=== PATIENT | male | born 1995 | race Hispanic/Latino ===

== ENCOUNTER 2018-07-09 12:35 | Emergency (ER) | payer BC, SELFPAY ==
--- NOTE | 2018-07-09 13:52 | EDPHYS ---
Physician Documentation [facility] Name: Gucci Santoyo Age: 22 yrs Sex: Male : 1995 Arrival Date: 07/09/2018 Time: 12:39 Bed 23 Private MD: ED Physician Dario Mcdaniel HPI: 07/09 13:51 This 22 yrs old Male presents to ER via Ambulatory with complaints of Nose pm1 Bleed, Vomiting. 13:51 The patient presents with a nose bleed, and the bleeding resolved prior to arrival. pm1 Onset: The symptoms/episode began/occurred on and off for 1 week. . Modifying factors: The symptoms are alleviated by pressure, the symptoms are aggravated by nothing. Associated signs and symptoms: The patient has no apparent associated signs or symptoms, Loss of consciousness: the patient experienced no loss of consciousness, Pertinent negatives: blurred vision, chest pain, cough, ear ache, fever, lightheadedness, nausea, rhinorrhea, shortness of breath, sore throat, vertigo. Severity of symptoms: in the emergency department the symptoms have resolved. The patient has experienced similar episodes in the past, multiple times. The patient has not recently seen a physician. Patient presenting with on and off nose bleed for 1 week that has resolved prior to arrival. Patient with occasional vomiting for the past three years. Patient reports history of h. pylori that was diagnosed three years ago that he did not complete the triple therapy. Patient had polyps removed with colonoscopy at three years ago that he did not follow up on. Patient is looking for treatment for his h. pylori and a colonoscopy. Patient is also complaining of a headache that started yesterday and resolved yesterday after going to sleep. No current headache. Historical: - Allergies: 12:56 No Known Allergies; ss - Home Meds: 12:56 None [Active]; ss - PMHx: 12:56 None; ss - PSHx: 12:56 None; ss - Immunization history:: Adult Immunizations up to date. - Social history:: Smoking status: Patient/guardian denies using tobacco. - Ebola Screening: : Patient denies exposure to infectious person Patient denies travel to an Ebola-affected area in the 21 days before illness onset. ROS: 13:51 Constitutional: Negative for fever, chills, and weight loss, Eyes: Negative for injury, pm1 pain, redness, and discharge, Neck: Negative for injury, pain, and swelling, Cardiovascular: Negative for chest pain, palpitations, and edema, Respiratory: Negative for shortness of breath, cough, wheezing, and pleuritic chest pain, Back: Negative for injury and pain, : Negative for injury, bleeding, discharge, and swelling, MS/Extremity: Negative for injury and deformity, Skin: Negative for injury, rash, and discoloration, Neuro: Negative for headache, weakness, numbness, tingling, and seizure. 13:51 ENT: Positive for nose bleed, Negative for drainage from ear(s), ear pain, sore throat, dental pain, difficulty swallowing, difficulty handling secretions. 13:51 Abdomen/GI: Positive for nausea, vomiting, Negative for abdominal pain, diarrhea. Exam: 13:51 Constitutional: This is a well developed, well nourished patient who is awake, alert, pm1 and in no acute distress. Head/Face: Normocephalic, atraumatic. Eyes: Pupils equal round and reactive to light, extra-ocular motions intact. Lids and lashes normal. Conjunctiva and sclera are non-icteric and not injected. Cornea within normal limits. Periorbital areas with no swelling, redness, or edema. ENT: Nares patent. No nasal discharge, no septal abnormalities noted. Tympanic membranes are normal and external auditory canals are clear. Oropharynx with no redness, swelling, or masses, exudates, or evidence of obstruction, uvula midline. Mucous membranes moist. Neck: Trachea midline, no thyromegaly or masses palpated, and no cervical lymphadenopathy. Supple, full range of motion without nuchal rigidity, or vertebral point tenderness. No Meningismus. Chest/axilla: Normal chest wall appearance and motion. Nontender with no deformity. No lesions are appreciated. Cardiovascular: Regular rate and rhythm with a normal S1 and S2. No gallops, murmurs, or rubs. Normal PMI, no JVD. No pulse deficits. Respiratory: Lungs have equal breath sounds bilaterally, clear to auscultation and percussion. No rales, rhonchi or wheezes noted. No increased work of breathing, no retractions or nasal flaring. Abdomen/GI: Soft, non-tender, with normal bowel sounds. No distension or tympany. No guarding or rebound. No evidence of tenderness throughout. Back: No spinal tenderness. No costovertebral tenderness. Full range of motion. Skin: Warm, dry with normal turgor. Normal color with no rashes, no lesions, and no evidence of cellulitis. MS/ Extremity: Pulses equal, no cyanosis. Neurovascular intact. Full, normal range of motion. 13:51 Neuro: Orientation: is normal, Motor: is normal, moves all fours, Sensation: is normal, no obvious gross deficits, Gait: is steady, at a normal pace, without difficulty. Vital Signs: 12:56 BP 146 / 96; Pulse 84; Resp 16; Temp 98.6(TE); Pulse Ox 99% on R/A; Weight 81.65 kg; ss Height 5 ft. 6 in. (167.64 cm); Pain 0/10; 13:00 BP 137 / 94; Pulse 89; Resp 19; Pulse Ox 100% on R/A; ca1 13:22 BP 122 / 80; Pulse 102; Resp 19; Pulse Ox 100% on R/A; ca1 14:00 BP 136 / 97; Pulse 81; Resp 19; Pulse Ox 100% on R/A; ca1 12:56 Body Mass Index 29.05 (81.65 kg, 167.64 cm) ss MDM: 12:59 Patient medically screened. pm1 13:51 Data reviewed: vital signs. Data interpreted: Pulse oximetry: on room air is 100 %. pm1 Interpretation: normal. Counseling: I had a detailed discussion with the patient and/or guardian regarding: the historical points, exam findings, and any diagnostic results supporting the discharge/admit diagnosis, the need for outpatient follow up, to return to the emergency department if symptoms worsen or persist or if there are any questions or concerns that arise at home. Administered Medications: No medications were administered Disposition: 07/10 07:19 Co-signature as Attending Physician, Dario Mcdaniel MD I agree with the assessment and kdr plan of care. Disposition: 07/09/18 13:52 Discharged to Home. Impression: Epistaxis - resolved, Vomiting, Headache. - Condition is Stable. - Discharge Instructions: Nosebleed, Adult, General Headache Without Cause, [id number], Vomiting, Adult. - Prescriptions for Zofran 4 mg Oral Tablet - take 1 tablet by ORAL route every 12 hours As needed; 20 tablet. Fiorinal 50- 325-40 mg Oral Capsule - take 1 capsule by ORAL route every 4 hours As needed - not to exceed 6 capsules per day; 20 capsule. - Medication Reconciliation Form, Thank You Letter, Antibiotic Education, Prescription Opioid Use, Work release form form. - Follow up: Emergency Department; When: As needed; Reason: Worsening of condition. Follow up: Private Physician; When: 2 - 3 days; Reason: Recheck today's complaints, Continuance of care, Re-evaluation by your physician. - Problem is new. - Symptoms have improved. Signatures: Dario Mcdaniel MD MD kdr Autumn Kowalski RN RN ss Montez Saravia, LORRAINE BILLING CLERK pm1 Acob, Jessica RN RN ca1 Corrections: (The following items were deleted from the chart) 07/09 13:53 13:52 07/09/2018 13:52 Discharged to Home. Impression: Epistaxis - resolved; Vomiting. pm1 Condition is Stable. Forms are Medication Reconciliation Form, Thank You Letter, Antibiotic Education, Prescription Opioid Use. Follow up: Emergency Department; When: As needed; Reason: Worsening of condition. Follow up: Private Physician; When: 2 - 3 days; Reason: Recheck today's complaints, Continuance of care, Re-evaluation by your physician. Problem is new. Symptoms have improved. pm1 14:18 13:53 07/09/2018 13:52 Discharged to Home. Impression: Epistaxis - resolved; Vomiting; ca1 Headache. Condition is Stable. Discharge Instructions: Nosebleed, Adult, Vomiting, Adult, General Headache Without Cause, [id number]. Prescriptions for Zofran 4 mg Oral Tablet - take 1 tablet by ORAL route every 12 hours As needed; 20 tablet, Fiorinal 50-325-40 mg Oral Capsule - take 1 capsule by ORAL route every 4 hours As needed - not to exceed 6 capsules per day; 20 capsule. and Forms are Medication Reconciliation Form, Thank You Letter, Antibiotic Education, Prescription Opioid Use. Follow up: Emergency Department; When: As needed; Reason: Worsening of condition. Follow up: Private Physician; When: 2 - 3 days; Reason: Recheck today's complaints, Continuance of care, Re-evaluation by your physician. Problem is new. Symptoms have improved. pm1
--- NOTE | 2018-07-09 13:52 | ER ---
Nurse's Notes [facility] Name: Gucci Santoyo Age: 22 yrs Sex: Male : 1995 Arrival Date: 07/09/2018 Time: 12:39 Bed 23 Private MD: Diagnosis: Epistaxis-resolved;Vomiting;Headache Presentation: 07/09 12:54 Presenting complaint: Patient states: intermittent nose bleeds, headaches and vomiting ss x 1 week. Pt reports this has occurred in the past and has had a lot of testing, but has never been diagnosed with anything. Transition of care: patient was not received from another setting of care. Onset of symptoms was July 02, 2018. Risk Assessment: Do you want to hurt yourself or someone else? Patient reports no desire to harm self or others. Initial Sepsis Screen: Does the patient meet any 2 criteria? No. Patient's initial sepsis screen is negative. Does the patient have a suspected source of infection? No. Patient's initial sepsis screen is negative. Care prior to arrival: None. 12:54 Method Of Arrival: Ambulatory ss 12:54 Acuity: JACQUI 3 ss Historical: - Allergies: 12:56 No Known Allergies; ss - Home Meds: 12:56 None [Active]; ss - PMHx: 12:56 None; ss - PSHx: 12:56 None; ss - Immunization history:: Adult Immunizations up to date. - Social history:: Smoking status: Patient/guardian denies using tobacco. - Ebola Screening: : Patient denies exposure to infectious person Patient denies travel to an Ebola-affected area in the 21 days before illness onset. Screenin:00 Abuse screen: Denies threats or abuse. Denies injuries from another. Nutritional ca1 screening: No deficits noted. On. Tuberculosis screening: No symptoms or risk factors identified. Fall Risk None identified. Assessment: 12:59 General: Appears in no apparent distress. comfortable, Behavior is calm, cooperative, ca1 appropriate for age, pt reports of vomiting this morning. 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 There was a lot of blood that soaked a few Kleenex which only comes from the right nostril. Pt also complained of dizziness and nausea during that time, but not at this time. . Pain: Complains of pain in low back area Pain does not radiate. Pain currently is 7 out of 10 on a pain scale. Pain began gradually, about over a week ago Is continuous, Aggravated by increased activity, lying down. Neuro: Level of Consciousness is awake, alert, obeys commands, Oriented to person, place, time, situation. Cardiovascular: Heart tones S1 S2 present Capillary refill < 3 seconds Patient's skin is warm and dry. Respiratory: Airway is patent Trachea midline Respiratory effort is even, unlabored, Respiratory pattern is regular, symmetrical, Breath sounds are clear bilaterally. GI: Abdomen is flat, non-distended, Bowel sounds present X 4 quads. Abd is soft and non tender X 4 quads. Reports nausea, vomiting, this morning and during the episode of nosebleed. : No deficits noted. No signs and/or symptoms were reported regarding the genitourinary system. EENT: Ear canal clear on nose Reports nasal discharge that is bloody since a week ago. Derm: Skin is intact, is healthy with good turgor, Skin is pink, warm \T\ dry. Musculoskeletal: Circulation, motion, and sensation intact. Capillary refill < 3 seconds, Range of motion: intact in all extremities. 13:20 Reassessment: Montez Saravia, MOTORCYCLE ENGINE ASSEMBLER at bedside. ca1 14:00 Reassessment: Patient appears in no apparent distress at this time. Patient and/or ca1 family updated on plan of care and expected duration. Pain level reassessed. Patient is alert, oriented x 3, equal unlabored respirations, skin warm/dry/pink. 14:00 Reassessment:. ca1 Vital Signs: 12:56 BP 146 / 96; Pulse 84; Resp 16; Temp 98.6(TE); Pulse Ox 99% on R/A; Weight 81.65 kg; Height 5 ft. 6 in. (167.64 cm); Pain 0/10; 13:00 BP 137 / 94; Pulse 89; Resp 19; Pulse Ox 100% on R/A; ca1 13:22 BP 122 / 80; Pulse 102; Resp 19; Pulse Ox 100% on R/A; ca1 14:00 BP 136 / 97; Pulse 81; Resp 19; Pulse Ox 100% on R/A; ca1 12:56 Body Mass Index 29.05 (81.65 kg, 167.64 cm) ED Course: 12:39 Patient arrived in ED. mr 12:48 Montez Saravia NP is PHCP. pm1 12:48 Dario Mcdaniel MD is Attending Physician. pm1 12:51 Jessica Gannon, RN is Primary Nurse. ca1 12:56 Triage completed. ss 12:56 Arm band placed on right wrist. ss 13:00 Patient has correct armband on for positive identification. Placed in gown. Bed in low ca1 position. Side rails up X 1. Pulse ox on. NIBP on. Warm blanket given. 13:00 No provider procedures requiring assistance completed. ca1 14:00 Patient did not have IV access during this emergency room visit. ca1 Administered Medications: No medications were administered Outcome: 13:52 Discharge ordered by . pm1 14:05 Discharged to home ambulatory. ca1 14:05 Condition: stable 14:05 Discharge instructions given to patient, Instructed on discharge instructions, follow up and referral plans. medication usage, Demonstrated understanding of instructions, follow-up care, medications, Prescriptions given X 2. 14:18 Patient left the ED. ca1 Signatures: Shelia Grullon Shelby, RN RN Montez Saravia NP MOTORCYCLE ENGINE ASSEMBLER pm1 Jessica Gannon, SUKI RN ca1 Corrections: (The following items were deleted from the chart) 13:07 12:59 BP 137 / 94; Pulse 89bpm; Resp 19bpm; Pulse Ox 100% RA; ca1 ca1
== END 2018-07-09 14:18 | disposition home or self-care (01) ==
LOC: ER 12:35
DX: R04.0 Epistaxis (principal); R11.10 Vomiting, unspecified; R51 Headache
CPT/HCPCS: 99283

== ENCOUNTER 2019-04-29 14:41 | Emergency (ER) | payer SELFPAY ==
[2019-04-29 16:25] LABS: Absolute Lymphocytes (CBC) 2.1 K/uL (0.7-4.9); Basophils % 0.7 % (0-1.3); Hematocrit 45.9 % (39.6-49.0); Lymphocytes % 24.8 % (15.3-44.8); MPV 8.1 fL (7.6-11.3); RBC Red Blood Cell Count 4.87 M/uL (4.33-5.43)
[2019-04-29] MEDS ORDERED: METOCLOPRAMIDE 10 MG/2mL INJ ONE (16:41)
[2019-04-29] MEDS ORDERED: DIPHENHYDRAMINE 50 MG/ML VIAL ONE (16:42)
[2019-04-29] MEDS ORDERED: NA CHLORIDE 0.9% 1,000 ML ONE ×2 (16:42→18:27)
[2019-04-29 16:49] LABS: Albumin 4.7 g/dL (3.4-5.0); Bilirubin Direct 0.1 mg/dL (0-0.2); Bilirubin Total 0.4 mg/dL (0.2-1.0); Potassium 4.1 mmol/L (3.5-5.1); Protein, Total 8.2 g/dL (6.4-8.2)
--- NOTE | 2019-04-29 17:11 | RAD REPORT ---
EXAM DESCRIPTION: CTAbdomen Pelvis W Contrast - 04/29/2019 5:05 pm CLINICAL HISTORY: Abdominal pain. abdominal pain, vomiting COMPARISON: <Comparisons> TECHNIQUE: Biphasic CT imaging of the abdomen and pelvis was performed with 100 ml non-ionic IV cont rast. All CT scans are performed using dose optimization technique as appropriate and may include automated exposure control or mA/KV adjustment according to patient size. FINDINGS: The lung bases are clear. The liver, spleen, pancreas, adrenal glands and kidneys are within normal limits. No bowel obstruction, free air, free fluid or abscess. The appendix is normal. No evidence of signi ficant lymphadenopathy. No suspicious bony findings. IMPRESSION: No acute intra-abdominal or pelvic finding.
--- NOTE | 2019-04-29 17:42 | EDPHYS ---
Physician Documentation [facility] Name: Gucci Santoyo Age: 23 yrs Sex: Male : 1995 Arrival Date: 04/29/2019 Time: 14:44 Bed 11 Private MD: ED Physician Henrry Perera HPI: 04/29 16:04 This 23 yrs old Male presents to ER via Carried with complaints of Nose Bleed, jmm Headache, Vomiting. 16:04 The patient presents with abdominal pain. Onset: The symptoms/episode began/occurred jmm gradually, 1 month(s) ago. The symptoms do not radiate. Associated signs and symptoms: Pertinent positives: headache, vomiting. The symptoms are described as achy. This is a 23 year old female with no known chronic medical conditions that presents to the ED with complaints of abdominal pain, vomiting beginning approx 1 month ago. Patient states similar episodes in the past. Patient also complains of intermittent headaches similar to previous migraines over the past month. Denies fever. Denies dark stools, bloody stools, or diarrhea. . Historical: - Allergies: 14:59 No Known Allergies; sg - PMHx: 14:59 None; sg - PSHx: 14:59 None; sg - Immunization history:: Adult Immunizations not up to date. - Social history:: Smoking status: Patient/guardian denies using tobacco. - Ebola Screening: : Patient negative for fever greater than or equal to 101.5 degrees Fahrenheit, and additional compatible Ebola Virus Disease symptoms Patient denies exposure to infectious person Patient denies travel to an Ebola-affected area in the 21 days before illness onset No symptoms or risks identified at this time. ROS: 16:04 Constitutional: Negative for fever, chills, and weight loss, Cardiovascular: Negative jmm for chest pain, palpitations, and edema, Respiratory: Negative for shortness of breath, cough, wheezing, and pleuritic chest pain. 16:04 ENT: Positive for nose bleed. 16:04 Abdomen/GI: Positive for abdominal pain, nausea and vomiting. 16:04 Neuro: Positive for headache. 16:04 All other systems are negative. Exam: 16:04 Constitutional: This is a well developed, well nourished patient who is awake, alert, jmm and in no acute distress. Head/Face: atraumatic. Eyes: EOMI, no conjunctival erythema appreciated ENT: Moist Mucus Membranes Neck: Trachea midline, Supple Chest/axilla: Normal chest wall appearance and motion. Cardiovascular: Regular rate and rhythm. No edema appreciated Respiratory: Normal respirations, no respiratory distress appreciated 16:04 Abdomen/GI: Inspection: abdomen appears normal, Bowel sounds: normal, Palpation: abdomen is soft and non-tender, in all quadrants. 16:04 Musculoskeletal/extremity: ROM: intact in all extremities. 16:04 Skin: Appearance: Color: normal in color. 16:04 Neuro: Orientation: is normal, Mentation: is normal, Memory: is normal. 16:04 Psych: Behavior/mood is pleasant, cooperative. Vital Signs: 15:16 BP 142 / 80; Pulse 77; Resp 18; Temp 99.0; Pulse Ox 97% on R/A; Weight 83.91 kg (R); sg Height 5 ft. 6 in. (167.64 cm); 15:16 Body Mass Index 29.86 (83.91 kg, 167.64 cm) sg MDM: 15:36 Patient medically screened. [facility] 17:39 Data reviewed: vital signs, nurses notes. Counseling: I had a detailed discussion with ra the patient and/or guardian regarding: the historical points, exam findings, and any diagnostic results supporting the discharge/admit diagnosis, lab results, radiology results, the need for outpatient follow up, to return to the emergency department if symptoms worsen or persist or if there are any questions or concerns that arise at home. ED course: Patient is alert and non toxic in appearance in the ED. QUINTERO, Abd relieved in the ED. CT negative. Will follow up with GI for further evaluation. Patient was given return precautions for worsening pain, fever, ect. . 04/29 16:03 Order name: Basic Metabolic Panel; Complete Time: 17:07 [facility] 04/29 16:03 Order name: CBC with Diff; Complete Time: 16:39 [facility] 04/29 16:03 Order name: Creatinine for Radiology; Complete Time: 17:07 [facility] 04/29 16:03 Order name: Hepatic Function; Complete Time: 17:07 [facility] 04/29 16:03 Order name: Lipase; Complete Time: 17:07 [facility] 04/29 16:03 Order name: CT Abd/Pelvis - IV Contrast Only; Complete Time: 17:14 [facility] 04/29 16:03 Order name: IV Saline Lock; Complete Time: 16:34 [facility] 04/29 16:03 Order name: Labs collected and sent; Complete Time: 16:34 [facility] Administered Medications: 16:40 Drug: NS 0.9% 1000 ml Route: IV; Rate: 1 bolus; Site: right antecubital; iw 16:40 Drug: Reglan 10 mg Route: IVP; Site: right antecubital; iw 16:40 Drug: diphenhydrAMINE 12.5 mg Route: IVP; Site: right antecubital; iw Disposition: 04/30 08:16 Co-signature as Attending Physician, Henrry Perera MD I agree with the assessment and kobe plan of care. Disposition: 04/29/19 17:41 Discharged to Home. Impression: Other abdominal pain, Vomiting, Headache. - Condition is Stable. - Discharge Instructions: Abdominal Pain, Adult, General Headache Without Cause, Nausea and Vomiting, Adult. - Prescriptions for Zofran ODT 4 mg Oral tablet,disintegrating - place 1 tablet by TRANSLINGUAL route every 4-6 hours; 20 tablet. Pepcid 20 mg Oral Tablet - take 1 tablet by ORAL route every 12 hours for 10 days; 20 tablet. - Medication Reconciliation Form, Thank You Letter, Antibiotic Education, Prescription Opioid Use, Work release form form. - Follow up: Private Physician; When: 2 - 3 days; Reason: Recheck today's complaints, Continuance of care, Re-evaluation by your physician. Signatures: Dispatcher [employer] Eldon Chaparro RN RN sg Anderson, Corey, MD MD cha Mickail, Joel, PA PA Melony Mccall RN RN Corrections: (The following items were deleted from the chart) 04/29 17:54 17:41 04/29/2019 17:41 Discharged to Home. Impression: Other abdominal pain; Vomiting; iw Headache. Condition is Stable. Forms are Medication Reconciliation Form, Thank You Letter, Antibiotic Education, Prescription Opioid Use. Follow up: Private Physician; When: 2 - 3 days; Reason: Recheck today's complaints, Continuance of care, Re-evaluation by your physician. ra
--- NOTE | 2019-04-29 17:42 | ER ---
Nurse's Notes [facility] Name: Gucci Santoyo Age: 23 yrs Sex: Male : 1995 Arrival Date: 04/29/2019 Time: 14:44 Bed 11 Private MD: Diagnosis: Other abdominal pain;Vomiting;Headache Presentation: 04/29 15:00 Acuity: JACQUI 4 sg 15:00 Method Of Arrival: Ambulatory sg 15:00 Presenting complaint: Patient states: Headache that is intermittent, reports having abd sg discomfort that comes and goes as well, described as tightening but not crampy, denies diarrhea reports having nausea/vomiting x1 then a nose bleed. Transition of care: patient was not received from another setting of care. Onset of symptoms was April 29, 2019. Risk Assessment: Do you want to hurt yourself or someone else? Patient reports no desire to harm self or others. Initial Sepsis Screen: Does the patient meet any 2 criteria? No. Patient's initial sepsis screen is negative. Does the patient have a suspected source of infection? No. Patient's initial sepsis screen is negative. Care prior to arrival: None. Triage Assessment: 17:00 Headache History: The patient has had previous headaches and this one is similar to iw previous episodes. General: Appears in no apparent distress. Behavior is calm, cooperative. Pain: Pain currently is 4 out of 10 on a pain scale. Also complains of nausea. 18:47 Pain: Pain began. iw Historical: - Allergies: 14:59 No Known Allergies; sg - PMHx: 14:59 None; sg - PSHx: 14:59 None; sg - Immunization history:: Adult Immunizations not up to date. - Social history:: Smoking status: Patient/guardian denies using tobacco. - Ebola Screening: : Patient negative for fever greater than or equal to 101.5 degrees Fahrenheit, and additional compatible Ebola Virus Disease symptoms Patient denies exposure to infectious person Patient denies travel to an Ebola-affected area in the 21 days before illness onset No symptoms or risks identified at this time. Screenin:50 Abuse screen: Denies threats or abuse. Denies injuries from another. Nutritional iw screening: No deficits noted. Tuberculosis screening: No symptoms or risk factors identified. Fall Risk IV access (20 points). Assessment: 16:00 General: Appears in no apparent distress. comfortable, Behavior is calm, cooperative. iw Pain: Complains of pain in abdomen. Neuro: Level of Consciousness is awake, alert, obeys commands, Oriented to person, place, time, situation, Moves all extremities. Full function. Cardiovascular: Patient's skin is warm and dry. Respiratory: Respiratory effort is even, unlabored, Respiratory pattern is regular. Derm: Skin is intact, is healthy with good turgor. Musculoskeletal: Range of motion: intact in all extremities. Vital Signs: 15:16 BP 142 / 80; Pulse 77; Resp 18; Temp 99.0; Pulse Ox 97% on R/A; Weight 83.91 kg (R); sg Height 5 ft. 6 in. (167.64 cm); 15:16 Body Mass Index 29.86 (83.91 kg, 167.64 cm) ED Course: 14:44 Patient arrived in ED. am2 14:59 Arm band placed on. sg 15:03 Triage completed. 15:34 Wang Mckeon PA is PHCP. [facility] 15:34 Henrry Perera MD is Attending Physician. [facility] 16:00 Patient has correct armband on for positive identification. iw 16:03 Melony Whaley RN is Primary Nurse. iw 17:07 CT Abd/Pelvis - IV Contrast Only In Process Unspecified. EDMS 17:53 No provider procedures requiring assistance completed. Patient did not have IV access iw during this emergency room visit. Administered Medications: 16:40 Drug: NS 0.9% 1000 ml Route: IV; Rate: 1 bolus; Site: right antecubital; iw 16:40 Drug: Reglan 10 mg Route: IVP; Site: right antecubital; iw 16:40 Drug: diphenhydrAMINE 12.5 mg Route: IVP; Site: right antecubital; iw Outcome: 17:41 Discharge ordered by . ra 17:53 Discharged to home ambulatory, with family. iw 17:53 Condition: good 17:53 Discharge instructions given to patient, family, Instructed on discharge instructions, follow up and referral plans. Demonstrated understanding of instructions, follow-up care, medications, Prescriptions given X 2. 17:54 Patient left the ED. iw Signatures: Dispatcher [employer] EDMS Eldon Díaz, SUKI COHN Mickail, WangTEA Irene, RN RN Felicitas Kwok am2 Corrections: (The following items were deleted from the chart) 15: Presenting complaint: Father states: Cough, was seen by PCP on Friday, the cough sg has been getting worse since then, has a hard time breathing at night when hes trying to sleep, and has wheezing as well sg 15: Transition of care: patient was not received from another setting of care. [facility] 15: Onset of symptoms was April 29, 2019 [facility] 15: Risk Assessment: Do you want to hurt yourself or someone else? Patient reports no sg desire to harm self or others. : Initial Sepsis Screen: Does the patient meet any 2 criteria? No. Patient's sg initial sepsis screen is negative. Does the patient have a suspected source of infection? No. Patient's initial sepsis screen is negative. 15: Care prior to arrival: None. sg 15: Method Of Arrival: Carried sg sg 15: Method Of Arrival: Carried sg sg
[2019-04-29] MEDS ORDERED: ONDANSETRON 4 MG/2 ML VIAL ONE (18:27)
[2019-04-29 18:45] VITALS: BP 142/80; TEMP 99; O2SAT 97
== END 2019-04-29 17:54 | disposition home or self-care (01) ==
LOC: ER 14:41
DX: R11.2 Nausea with vomiting, unspecified (principal); R51 Headache
CPT/HCPCS: 36415; 74177; 80048; 80076; 83690; 85025; 96374; 96375; 99283; J1200; J2405; J2765; J7030; Q9967

== ENCOUNTER 2019-07-07 | Emergency (ER) | payer SELFPAY ==
--- NOTE | 2019-07-07 19:45 | EDPHYS ---
Physician Documentation [facility] Name: Gucci Santoyo Age: 23 yrs Sex: Male : 1995 Arrival Date: 07/07/2019 Time: 19:15 Bed 14 Private MD: ED Physician Henrry Perera HPI: 07/06 19:43 This 23 yrs old Male presents to ER via Unassigned with complaints of Medical la1 Clearance. 19:43 The patient presents to the emergency department with vomiting. Onset: The la1 symptoms/episode began/occurred 2 day(s) ago. Possible causes: unknown. Associated signs and symptoms: The patient has no apparent associated signs or symptoms. Severity of symptoms: At their worst the symptoms were very mild. The patient has not experienced similar symptoms in the past. pt vomited two times a few days ago, needs work note. Historical: - Allergies: 19:48 No Known Allergies; mg2 - Home Meds: 19:48 None [Active]; mg2 - PMHx: 19:48 None; mg2 - Immunization history:: Flu vaccine status is unknown. - Social history:: Smoking status: Patient reports the use of cigarette tobacco products, denies chronic smoking, but will smoke occasionally. ROS: 19:43 Constitutional: Negative for fever, chills, and weight loss, Cardiovascular: Negative la1 for chest pain, palpitations, and edema, Respiratory: Negative for shortness of breath, cough, wheezing, and pleuritic chest pain, Abdomen/GI: Negative for abdominal pain, nausea, vomiting, diarrhea, and constipation, MS/Extremity: Negative for injury and deformity, Neuro: Negative for headache, weakness, numbness, tingling, and seizure. Exam: 19:43 Constitutional: This is a well developed, well nourished patient who is awake, alert, la1 and in no acute distress. Head/Face: Normocephalic, atraumatic. Chest/axilla: Normal chest wall appearance and motion. Nontender with no deformity. No lesions are appreciated. Cardiovascular: Regular rate and rhythm with a normal S1 and S2. No gallops, murmurs, or rubs. Normal PMI, no JVD. No pulse deficits. Respiratory: Lungs have equal breath sounds bilaterally, clear to auscultation Abdomen/GI: Soft, non-tender, with normal bowel sounds. No distension Back: No spinal tenderness. No costovertebral tenderness. Full range of motion. Skin: Warm, dry with normal turgor. Normal color with no rashes, no lesions, and no evidence of cellulitis. Vital Signs: 19:45 BP 134 / 89; Pulse 81; Resp 18; Temp 98.6; Pulse Ox 95% on R/A; Weight 86.18 kg; Height mg2 5 ft. 6 in. (167.64 cm); Pain 0/10; 19:45 Body Mass Index 30.67 (86.18 kg, 167.64 cm) mg2 MDM: 19:42 Patient medically screened. la1 19:44 Data reviewed: vital signs, nurses notes, I have discussed the patient's la1 presentation/case with the attending Emergency Department Physician; and as a result, I will discharge patient. Data interpreted: Pulse oximetry: on room air is 99 %. Interpretation: normal. Counseling: I had a detailed discussion with the patient and/or guardian regarding: the historical points, exam findings, and any diagnostic results supporting the discharge/admit diagnosis, the need for outpatient follow up, a family practitioner, to return to the emergency department if symptoms worsen or persist or if there are any questions or concerns that arise at home. Special discussion: Based on the patient's Hx, exam, and Dx evaluation, there is no indication for emergent surgery or inpatient Tx. It is understood by the patient/guardian that if the Sx's persist or worsen they need to return immediately for re-evaluation. Administered Medications: No medications were administered Disposition: 07/07 07:32 Co-signature as Attending Physician, Henrry Perera MD I agree with the assessment and [facility] plan of care. Disposition: 07/07/19 19:44 Discharged to Home. Impression: Vomiting. - Condition is Stable. - Discharge Instructions: Nausea and Vomiting, Adult. - Work release form, Medication Reconciliation Form, Thank You Letter form. - Follow up: Private Physician; When: As needed; Reason: Recheck today's complaints, Continuance of care, Re-evaluation by your physician. - Problem is new. - Symptoms have improved. Signatures: Henrry Perera MD MD cha Attema, Lee, MARIAM-C PAYROLL AND BENEFITS MANAGER-Cla1 Stewart Moreno, SUKI RN [facility] Flo, Jose, RN RN rv Corrections: (The following items were deleted from the chart) 07/06 19:56 19:44 07/07/2019 19:44 Discharged to Home. Impression: Vomiting. Condition is Stable. rv Forms are Medication Reconciliation Form, Thank You Letter, Antibiotic Education, Prescription Opioid Use. Follow up: Private Physician; When: As needed; Reason: Recheck today's complaints, Continuance of care, Re-evaluation by your physician. Problem is new. Symptoms have improved. la1
--- NOTE | 2019-07-07 19:57 | ER ---
Nurse's Notes [facility] Name: Gucci Santoyo Age: 23 yrs Sex: Male : 1995 Arrival Date: 07/07/2019 Time: 19:15 Bed 14 Private MD: Diagnosis: Vomiting Presentation: 07/06 19:45 Chief complaint: Patient states: i was seen by my boss 4 days ago in the parking lot mg2 vomiting. i vomited 2x that day. i dont have other symptoms. Coronavirus screen: The patient has NOT traveled to a country currently being monitored by the [facility] within the last 14 days. Proceed with normal triage procedures. The patient has NOT had contact with any known and/or suspected case of coronavirus. Proceed with normal triage procedures. Ebola Screen: No symptoms or risks identified at this time. Initial Sepsis Screen: Does the patient meet any 2 criteria? No. Patient's initial sepsis screen is negative. Does the patient have a suspected source of infection? No. Patient's initial sepsis screen is negative. Risk Assessment: Do you want to hurt yourself or someone else? Patient reports no desire to harm self or others. 19:45 Method Of Arrival: Ambulatory mg2 19:45 Acuity: JACQUI 5 mg2 Historical: - Allergies: 19:48 No Known Allergies; mg2 - Home Meds: 19:48 None [Active]; mg2 - PMHx: 19:48 None; mg2 - Immunization history:: Flu vaccine status is unknown. - Social history:: Smoking status: Patient reports the use of cigarette tobacco products, denies chronic smoking, but will smoke occasionally. Screenin:55 Abuse screen: Denies threats or abuse. Denies injuries from another. Nutritional rv screening: No deficits noted. Tuberculosis screening: No symptoms or risk factors identified. Fall Risk None identified. Assessment: 19:53 General: Appears in no apparent distress. comfortable, Behavior is calm, cooperative. rv Pain: Denies pain. Neuro: Level of Consciousness is awake, alert, obeys commands, Oriented to person, place, time, situation. Cardiovascular: Patient's skin is warm and dry. Respiratory: Airway is patent. GI: No signs and/or symptoms were reported involving the gastrointestinal system. Patient currently denies. Vital Signs: 19:45 BP 134 / 89; Pulse 81; Resp 18; Temp 98.6; Pulse Ox 95% on R/A; Weight 86.18 kg; Height mg2 5 ft. 6 in. (167.64 cm); Pain 0/10; 19:45 Body Mass Index 30.67 (86.18 kg, 167.64 cm) mg2 ED Course: 19:15 Patient arrived in ED. cl3 19:39 Linus Galdamez FNP-C [facility]. la1 19:39 Henrry Perera MD is Attending Physician. la1 19:47 Triage completed. mg2 19:47 Arm band placed on. mg2 19:53 Jose Rossi, RN is Primary Nurse. rv 19:55 Patient has correct armband on for positive identification. Pulse ox on. NIBP on. rv 19:55 No provider procedures requiring assistance completed. Patient did not have IV access rv during this emergency room visit. Administered Medications: No medications were administered Outcome: 19:44 Discharge ordered by . la1 19:55 Discharged to home ambulatory. rv 19:55 Condition: good 19:55 Discharge instructions given to patient, Instructed on discharge instructions, follow up and referral plans. Demonstrated understanding of instructions, follow-up care. 19:56 Patient left the ED. rv Signatures: Linus Galdamez FNP-C SENIOR SYSTEMS SOFTWARE ENGINEER-Cla1 Stewart Moreno RN RN [facility] Jose Rossi, SUKI RN rv Palmira Robles cl3
== END 2019-07-07 19:56 | disposition home or self-care (01) ==
CPT/HCPCS: 99283

== ENCOUNTER 2019-08-26 14:07 | Emergency (ER) | payer SELFPAY ==
--- NOTE | 2019-08-26 14:56 | EDPHYS ---
Physician Documentation [facility] Name: Gucci Santoyo Age: 23 yrs Sex: Male : 1995 Arrival Date: 08/26/2019 Time: 14:10 Bed 12 Private MD: ED Physician Dario Mcdaniel HPI: 08/25 14:56 This 23 yrs old Male presents to ER via Ambulatory with complaints of Nose jr8 Bleed. 14:56 Onset: The symptoms/episode began/occurred acutely, this morning. Possible causes: jr8 unknown. The symptoms are aggravated by nothing. The symptoms are alleviated by nothing. Associated signs and symptoms: The patient has no apparent associated signs or symptoms. Severity of symptoms: At their worst the symptoms were mild in the emergency department the symptoms have resolved. The patient has experienced similar episodes in the past, a few times. The patient has not recently seen a physician. Patient stated that he has occasional nose bleeds. Stated that work would not let him back in without doctors excuse . Historical: - Allergies: 14:32 No Known Allergies; aa5 - Home Meds: 14:32 pantoprazole oral oral [Active]; aa5 - PMHx: 14:32 None; aa5 - PSHx: 14:32 None; aa5 - Immunization history:: Adult Immunizations up to date. - Social history:: Smoking status: Patient denies any tobacco usage or history of. ROS: 14:56 Eyes: Negative for injury, pain, redness, and discharge, Neck: Negative for injury, jr8 pain, and swelling, Cardiovascular: Negative for chest pain, palpitations, and edema, Respiratory: Negative for shortness of breath, cough, wheezing, and pleuritic chest pain, Abdomen/GI: Negative for abdominal pain, nausea, vomiting, diarrhea, and constipation, Back: Negative for injury and pain, MS/Extremity: Negative for injury and deformity, Skin: Negative for injury, rash, and discoloration, Neuro: Negative for headache, weakness, numbness, tingling, and seizure. 14:56 ENT: Positive for nose bleed. Exam: 14:56 Eyes: Pupils equal round and reactive to light, extra-ocular motions intact. Lids and jr8 lashes normal. Conjunctiva and sclera are non-icteric and not injected. Cornea within normal limits. Periorbital areas with no swelling, redness, or edema. ENT: Nares patent. No nasal discharge, no septal abnormalities noted. Tympanic membranes are normal and external auditory canals are clear. Oropharynx with no redness, swelling, or masses, exudates, or evidence of obstruction, uvula midline. Mucous membranes moist. Neck: Trachea midline, no thyromegaly or masses palpated, and no cervical lymphadenopathy. Supple, full range of motion without nuchal rigidity, or vertebral point tenderness. No Meningismus. Cardiovascular: Regular rate and rhythm with a normal S1 and S2. No gallops, murmurs, or rubs. Normal PMI, no JVD. No pulse deficits. Respiratory: Lungs have equal breath sounds bilaterally, clear to auscultation and percussion. No rales, rhonchi or wheezes noted. No increased work of breathing, no retractions or nasal flaring. Abdomen/GI: Soft, non-tender, with normal bowel sounds. No distension or tympany. No guarding or rebound. No evidence of tenderness throughout. Back: No spinal tenderness. No costovertebral tenderness. Full range of motion. Skin: Warm, dry with normal turgor. Normal color with no rashes, no lesions, and no evidence of cellulitis. MS/ Extremity: Pulses equal, no cyanosis. Neurovascular intact. Full, normal range of motion. Neuro: Awake and alert, GCS 15, oriented to person, place, time, and situation. Cranial nerves II-XII grossly intact. Motor strength 5/5 in all extremities. Sensory grossly intact. Cerebellar exam normal. Normal gait. Vital Signs: 14:32 BP 127 / 90; Pulse 88; Resp 16 S; Temp 97.5(TE); Pulse Ox 99% on R/A; Weight 86.18 kg aa5 (R); Height 5 ft. 6 in. (167.64 cm) (R); 14:32 Body Mass Index 30.67 (86.18 kg, 167.64 cm) aa5 MDM: 14:55 Data reviewed: vital signs, nurses notes, and as a result, I will discharge patientPolo jr8 Data interpreted: Pulse oximetry: on room air is 99 %. Interpretation: normal. 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 14:55 Patient medically screened. jr8 Administered Medications: No medications were administered Disposition: 08/26 01:25 Co-signature as Attending Physician, Dario Mcdaniel MD I agree with the assessment and kdr plan of care. Disposition: 08/26/19 14:55 Discharged to Home. Impression: Epistaxis. - Condition is Stable. - Discharge Instructions: Nosebleed, Adult. - Work release form, Medication Reconciliation Form, Thank You Letter, Antibiotic Education, Prescription Opioid Use form. - Follow up: Private Physician; When: As needed; Reason: Recheck today's complaints, Continuance of care, Re-evaluation by your physician. - Problem is new. - Symptoms have improved. Signatures: Dario Mcdaniel MD MD [facility] Gisel Mcdonald RN RN aa5 Marin Berman PA PA jr8 Corrections: (The following items were deleted from the chart) 08/25 14:59 14:56 This 23 yrs old Male presents to ER via Ambulatory with complaints of jr8 Nausea/Vomiting, Nose Bleed. jr8 15:01 14:55 08/26/2019 14:55 Discharged to Home. Impression: Epistaxis. Condition is Stable. aa5 Forms are Medication Reconciliation Form, Thank You Letter, Antibiotic Education, Prescription Opioid Use. Follow up: Private Physician; When: As needed; Reason: Recheck today's complaints, Continuance of care, Re-evaluation by your physician. Problem is new. Symptoms have improved. jr8
--- NOTE | 2019-08-26 14:56 | ER ---
Nurse's Notes [facility] Name: Gucci Santoyo Age: 23 yrs Sex: Male : 1995 Arrival Date: 08/26/2019 Time: 14:10 Bed 12 Private MD: Diagnosis: Epistaxis Presentation: 08/25 14:29 Chief complaint: Patient states: "I've been having nausea, vomiting, and frequent nose aa5 bleeds for about 5 years now but my work wouldn't let me in because I had a nose bleed for about 30 minutes today". Pt states "I am already taking nausea medication and I'm scheduled to see a GI doctor soon so I just need a work excuse". Coronavirus screen: Proceed with normal triage. Patient denies a cough. Patient denies shortness of breath or difficulty breathing. Patient denies measured and/or subjective temperature greater than 100.4F prior to today's visit. Patient denies travel on a cruise ship or to a country the [facility] currently lists as an affected area. Patient denies contact with known and/or suspected case of COVID-19. Ebola Screen: Patient negative for fever greater than or equal to 101.5 degrees Fahrenheit, and additional compatible Ebola Virus Disease symptoms. Initial Sepsis Screen: Does the patient meet any 2 criteria? No. Patient's initial sepsis screen is negative. Does the patient have a suspected source of infection? No. Patient's initial sepsis screen is negative. Risk Assessment: Do you want to hurt yourself or someone else? Patient reports no desire to harm self or others. Onset of symptoms was August 26, 2019. 14:29 Acuity: JACQUI 5 aa5 14:29 Method Of Arrival: Ambulatory aa5 Historical: - Allergies: 14:32 No Known Allergies; aa5 - Home Meds: 14:32 pantoprazole oral oral [Active]; aa5 - PMHx: 14:32 None; aa5 - PSHx: 14:32 None; aa5 - Immunization history:: Adult Immunizations up to date. - Social history:: Smoking status: Patient denies any tobacco usage or history of. Screenin:33 Abuse screen: Denies threats or abuse. Nutritional screening: No deficits noted. aa5 Tuberculosis screening: No symptoms or risk factors identified. Fall Risk None identified. Assessment: 14:33 General: Appears comfortable, Behavior is calm, cooperative. Pain: Denies pain. Neuro: aa5 Level of Consciousness is awake, alert, obeys commands, Oriented to person, place, time, situation. Cardiovascular: Patient's skin is warm and dry. Respiratory: Airway is patent Respiratory effort is even, unlabored, Respiratory pattern is regular, symmetrical. GI: Abdomen is round non-distended, Bowel sounds present X 4 quads. Abd is soft and non tender X 4 quads. Patient currently denies nausea. : No signs and/or symptoms were reported regarding the genitourinary system. EENT: Reports nose bleed, no active bleeding noted. . Derm: Skin is pink, warm \\T\\ dry. Musculoskeletal: Range of motion: intact in all extremities. 15:00 Reassessment: Patient is alert, oriented x 3, equal unlabored respirations, skin aa5 warm/dry/pink. Vital Signs: 14:32 BP 127 / 90; Pulse 88; Resp 16 S; Temp 97.5(TE); Pulse Ox 99% on R/A; Weight 86.18 kg aa5 (R); Height 5 ft. 6 in. (167.64 cm) (R); 14:32 Body Mass Index 30.67 (86.18 kg, 167.64 cm) aa5 ED Course: 14:10 Patient arrived in ED. as 14:29 Arm band placed on. aa5 14:29 Patient has correct armband on for positive identification. aa5 14:31 Triage completed. aa5 14:33 Gisel Mcdonald RN is Primary Nurse. aa5 14:55 Marin Berman PA [facility]. jr8 14:55 Dario Mcdaniel MD is Attending Physician. jr8 15:00 No provider procedures requiring assistance completed. Patient did not have IV access aa5 during this emergency room visit. Administered Medications: No medications were administered Outcome: 14:55 Discharge ordered by . jr8 15:00 Discharged to home ambulatory. aa5 15:00 Condition: stable 15:00 Discharge instructions given to patient, Instructed on discharge instructions, follow up and referral plans. Demonstrated understanding of instructions, follow-up care. 15:01 Patient left the ED. aa5 Signatures: Aurelia Griffith as Gisel Mcdonald RN RN aa5 Marin Berman, PA PA jr8
[2019-08-27 03:20] VITALS: BP 127/90; TEMP 97.5; O2SAT 99
== END 2019-08-26 15:01 | disposition home or self-care (01) ==
LOC: ER 14:07
DX: R04.0 Epistaxis (principal)
CPT/HCPCS: 99281

== ENCOUNTER 2019-09-03 14:20 | Emergency (ER) | payer SELFPAY ==
--- NOTE | 2019-09-03 16:03 | EDPHYS ---
Physician Documentation [facility] Name: Gucci Santoyo Age: 23 yrs Sex: Male : 1995 Arrival Date: 09/03/2019 Time: 14:22 Bed 23 Private MD: ED Physician Liz Hernandes HPI: 09/02 15:58 This 23 yrs old Male presents to ER via Ambulatory with complaints of Vomiting.cp 15:58 The patient presents to the emergency department with vomiting, that is intermittent. cp Onset: The symptoms/episode began/occurred this morning, now resolved. Possible causes: unknown. Associated signs and symptoms: Pertinent negatives: abdominal pain, anorexia, diarrhea, fever, GI bleeding, cough. Severity of symptoms: in the emergency department the symptoms have resolved and did so earlier today. Patient reports needing note to return to work tomorrow. Historical: - Allergies: 14:46 No Known Allergies; ca1 - Home Meds: 14:46 pantoprazole Oral [Active]; ca1 - PMHx: 14:46 None; ca1 - PSHx: 14:46 None; ca1 - Immunization history:: Adult Immunizations up to date. - Social history:: Smoking status: Patient/guardian denies using tobacco, but has a distant history of tobacco abuse. ROS: 15:59 Constitutional: Negative for body aches, chills, fever, poor PO intake. cp 15:59 ENT: Negative for drainage from ear(s), ear pain, sore throat, difficulty swallowing, difficulty handling secretions. 15:59 Respiratory: Negative for cough. 15:59 Abdomen/GI: Positive for nausea and vomiting, Negative for abdominal pain, diarrhea, constipation, anorexia, hematemesis. 15:59 Skin: Negative for rash. 15:59 Neuro: Negative for altered mental status, headache, weakness. 15:59 All other systems are negative. Exam: 16:00 Head/Face: Normocephalic, atraumatic. cp 16:00 Constitutional: The patient appears in no acute distress, alert, awake, comfortable, non-toxic, well developed, well nourished. 16:00 Eyes: Periorbital structures: appear normal, Conjunctiva: normal, no exudate, no injection, Sclera: no appreciated abnormality, Lids and lashes: appear normal, bilaterally. 16:00 ENT: External ear(s): are unremarkable, Nose: is normal, Mouth: is normal, Posterior pharynx: Airway: no evidence of obstruction, patent. 16:00 Chest/axilla: Inspection: normal, Palpation: is normal, no crepitus, no tenderness. 16:00 Cardiovascular: Rate: normal, Rhythm: regular. 16:00 Respiratory: the patient does not display signs of respiratory distress, Respirations: normal, no use of accessory muscles, no retractions, labored breathing, is not present. 16:00 Abdomen/GI: Inspection: abdomen appears normal, Palpation: abdomen is soft and non-tender, in all quadrants. Vital Signs: 14:41 BP 121 / 89; Pulse 68; Resp 17 S; Temp 97.6(TE); Pulse Ox 99% on R/A; Weight 88.45 kg ca1 (R); Height 5 ft. 6 in. (167.64 cm); Pain 0/10; 14:41 Body Mass Index 31.47 (88.45 kg, 167.64 cm) ca1 MDM: 15:54 Patient medically screened. cp 16:00 Differential diagnosis: gastritis, cholecystitis, pancreatitis, appendicitis, viral cp gastroenteritis, gastroenteritis. 16:01 Data reviewed: vital signs, nurses notes, and as a result, I will discharge patient. cp 16:01 Counseling: I had a detailed discussion with the patient and/or guardian regarding: the cp historical points, exam findings, and any diagnostic results supporting the discharge/admit diagnosis, to return to the emergency department if symptoms worsen or persist or if there are any questions or concerns that arise at home. 09/02 16:00 Order name: PO challenge; Complete Time: 16:04 cp Administered Medications: No medications were administered Disposition: 16:05 Chart complete. cp 18:16 Co-signature as Attending Physician, Liz Hernandes MD. ma2 Disposition: 09/03/19 16:02 Discharged to Home. Impression: Vomiting. - Condition is Stable. - Discharge Instructions: Vomiting, Adult. - Prescriptions for Zofran 4 mg Oral Tablet - take 1 tablet by ORAL route every 12 hours As needed; 10 tablet. - Work release form, Medication Reconciliation Form, Thank You Letter, Antibiotic Education, Prescription Opioid Use form. - Follow up: Private Physician; When: 1 - 2 days; Reason: Worsening of condition. - Problem is new. - Symptoms are resolved. Signatures: Autumn Kowalski RN RN ss Henrry Millan PA PA cp Liz Hernandes MD MD ma2 Jessica Gannon RN RN ca1 Corrections: (The following items were deleted from the chart) 16:08 16:02 09/03/2019 16:02 Discharged to Home. Impression: Vomiting. Condition is Stable. ss Forms are Medication Reconciliation Form, Thank You Letter, Antibiotic Education, Prescription Opioid Use. Follow up: Private Physician; When: 1 - 2 days; Reason: Worsening of condition. Problem is new. Symptoms are resolved. cp 16:17 16:08 09/03/2019 16:02 Discharged to Home. Impression: Vomiting. Condition is Stable. ss Discharge Instructions: Vomiting, Adult. Prescriptions for Zofran 4 mg Oral Tablet - take 1 tablet by ORAL route every 12 hours As needed; 10 tablet. and Forms are Medication Reconciliation Form, Thank You Letter, Antibiotic Education, Prescription Opioid Use, Work release form. Follow up: Private Physician; When: 1 - 2 days; Reason: Worsening of condition. Problem is new. Symptoms are resolved. ss
--- NOTE | 2019-09-03 16:03 | ER ---
Nurse's Notes [facility] Name: Gucci Santoyo Age: 23 yrs Sex: Male : 1995 Arrival Date: 09/03/2019 Time: 14:22 Bed 23 Private MD: Diagnosis: Vomiting Presentation: 09/02 14:41 Chief complaint: Patient states: Vomiting x days. I have this for years now. I am ca1 scheduled to do an endoscopy as soon as the covid stuff is done. I just need a work note since I vomited at work today. Denies abdl pain. Coronavirus screen: Proceed with normal triage. Patient denies a cough. Patient denies shortness of breath or difficulty breathing. Patient denies measured and/or subjective temperature greater than 100.4F prior to today's visit. Patient denies travel on a cruise ship or to a country the [facility] currently lists as an affected area. Patient denies contact with known and/or suspected case of COVID-19. Ebola Screen: Patient negative for fever greater than or equal to 101.5 degrees Fahrenheit, and additional compatible Ebola Virus Disease symptoms Patient denies exposure to infectious person. Patient denies travel to an Ebola-affected area in the 21 days before illness onset. No symptoms or risks identified at this time. Initial Sepsis Screen: Does the patient meet any 2 criteria? No. Patient's initial sepsis screen is negative. Does the patient have a suspected source of infection? No. Patient's initial sepsis screen is negative. Risk Assessment: Do you want to hurt yourself or someone else? Patient reports no desire to harm self or others. Onset of symptoms was September 03, 2019. 14:41 Method Of Arrival: Ambulatory ca1 14:41 Acuity: JACQUI 4 ca1 Historical: - Allergies: 14:46 No Known Allergies; ca1 - Home Meds: 14:46 pantoprazole Oral [Active]; ca1 - PMHx: 14:46 None; ca1 - PSHx: 14:46 None; ca1 - Immunization history:: Adult Immunizations up to date. - Social history:: Smoking status: Patient/guardian denies using tobacco, but has a distant history of tobacco abuse. Screenin:05 Abuse screen: Denies threats or abuse. Denies injuries from another. Nutritional ss screening: No deficits noted. Tuberculosis screening: Never had TB. Fall Risk None identified. Assessment: 16:05 General: Appears in no apparent distress. comfortable, Behavior is calm, cooperative, ss anxious. Pain: Denies pain. Neuro: Level of Consciousness is awake, alert, obeys commands. Cardiovascular: Capillary refill < 3 seconds is brisk in bilateral fingers. Respiratory: GI: Abdomen is non-distended, Reports nausea. : No signs and/or symptoms were reported regarding the genitourinary system. EENT: Nares are clear. Derm: Skin is intact, is healthy with good turgor, Skin is pink, warm \T\ dry. normal. Musculoskeletal: Circulation, motion, and sensation intact. Range of motion: intact in all extremities, Swelling absent. Vital Signs: 14:41 BP 121 / 89; Pulse 68; Resp 17 S; Temp 97.6(TE); Pulse Ox 99% on R/A; Weight 88.45 kg ca1 (R); Height 5 ft. 6 in. (167.64 cm); Pain 0/10; 14:41 Body Mass Index 31.47 (88.45 kg, 167.64 cm) ca1 ED Course: 14:22 Patient arrived in ED. as 14:45 Triage completed. ca1 14:46 Arm band placed on right wrist. ca1 15:11 Henrry Millan PA is PHCP. cp 15:11 Liz Hernandes MD is Attending Physician. cp 15:14 Henrry Millan PA is PHCP. cp 16:05 Patient has correct armband on for positive identification. Bed in low position. Call ss light in reach. 16:05 No provider procedures requiring assistance completed. Patient did not have IV access ss during this emergency room visit. 16:08 Autumn Kowalski, SUKI is Primary Nurse. ss Administered Medications: No medications were administered Outcome: 16:02 Discharge ordered by . cp 16:07 Discharged to home ambulatory. ss 16:07 Condition: good 16:07 Discharge instructions given to patient, Instructed on discharge instructions, follow up and referral plans. medication usage, Demonstrated understanding of instructions, follow-up care, medications, Prescriptions given X 1. 16:08 Patient left the ED. ss 16:17 Patient left the ED. ss Signatures: Aurelia Griffith as Autumn Kowalski RN RN Page, Henrry, PA PA cp Acob, Jessica, RN RN ca1
[2019-09-03 16:40] VITALS: BP 121/89; TEMP 97.6; O2SAT 99
== END 2019-09-03 16:17 | disposition home or self-care (01) ==
LOC: ER 14:20
DX: R11.10 Vomiting, unspecified (principal)
CPT/HCPCS: 99282

== ENCOUNTER 2019-09-07 19:09 | Emergency (ER) | payer SELFPAY ==
--- NOTE | 2019-09-07 20:15 | RAD REPORT ---
EXAM DESCRIPTION: RAD - Chest Single View - 09/07/2019 8:04 pm CLINICAL HISTORY: BLUNT CHEST TRAUMA Chest pain. COMPARISON: No comparisons FINDINGS: Portable technique limits examination quality. The lungs are grossly clear. The heart is normal in size. No displaced fractures. IMPRESSION: No acute intrathoracic process suspected.
--- NOTE | 2019-09-07 20:16 | RAD REPORT ---
EXAM DESCRIPTION: RAD - Ribs Right - 09/07/2019 8:11 pm CLINICAL HISTORY: Pain;Smash injury COMPARISON: Chest Single View dated 09/07/2019 FINDINGS: No displaced rib fracture is seen. No aggressive rib lesion.
[2019-09-07] MEDS ORDERED: KETOROLAC 30 MG/ML INJ ONE (20:18)
--- NOTE | 2019-09-07 20:51 | EDPHYS ---
Physician Documentation [facility] Name: Gucci Santoyo Age: 23 yrs Sex: Male : 1995 Arrival Date: 09/07/2019 Time: 19:12 Bed 24 Private MD: ED Physician Daryl Gloria HPI: 09/06 20:55 This 23 yrs old Male presents to ER via Ambulatory with complaints of Chest tw4 Pain, Fall Injury. 20:55 The patient or guardian reports chest pain that is located primarily in the anterior tw4 chest wall. The patient or guardian reports chest pain that is located primarily in the anterior chest wall. Onset: The symptoms/episode began/occurred 4 day(s) ago. The pain does not radiate. Associated signs and symptoms: The patient has no apparent associated signs or symptoms. The chest pain is described as dull. Duration: The patient or guardian reports a single episode, that is still ongoing. Modifying factors: The symptoms are alleviated by nothing. the symptoms are aggravated by nothing. Severity of pain: At its worst the pain was moderate. 4 day(s) ago, The patient has not experienced similar symptoms in the past. pt states he fell from a standing position. Historical: - Allergies: 19:22 No Known Allergies; lp1 - Home Meds: 19:22 pantoprazole Oral [Active]; lp1 - PMHx: 19:22 None; lp1 - PSHx: 19:22 None; lp1 - Immunization history:: Adult Immunizations up to date. - Social history:: Smoking status: Patient denies any tobacco usage or history of. ROS: 20:58 Constitutional: Negative for fever, chills, and weight loss, Eyes: Negative for injury, tw4 pain, redness, and discharge, Respiratory: Negative for shortness of breath, cough, wheezing, and pleuritic chest pain, Abdomen/GI: Negative for abdominal pain, nausea, vomiting, diarrhea, and constipation, Back: Negative for injury and pain, MS/Extremity: Negative for injury and deformity, Skin: Negative for injury, rash, and discoloration, Neuro: Negative for headache, weakness, numbness, tingling, and seizure. 20:58 Cardiovascular: Positive for chest pain, with cough, with movement, of the right supraclavicular area, right clavicle and anterior aspect of right upper chest. Exam: 20:59 Constitutional: This is a well developed, well nourished patient who is awake, alert, tw4 and in no acute distress. Head/Face: Normocephalic, atraumatic. Eyes: Pupils equal round and reactive to light, extra-ocular motions intact. Lids and lashes normal. Conjunctiva and sclera are non-icteric and not injected. Cornea within normal limits. Periorbital areas with no swelling, redness, or edema. Cardiovascular: Regular rate and rhythm with a normal S1 and S2. No gallops, murmurs, or rubs. Normal PMI, no JVD. No pulse deficits. Respiratory: Lungs have equal breath sounds bilaterally, clear to auscultation and percussion. No rales, rhonchi or wheezes noted. No increased work of breathing, no retractions or nasal flaring. Abdomen/GI: Soft, non-tender, with normal bowel sounds. No distension or tympany. No guarding or rebound. No evidence of tenderness throughout. Back: No spinal tenderness. No costovertebral tenderness. Full range of motion. MS/ Extremity: Pulses equal, no cyanosis. Neurovascular intact. Full, normal range of motion. Neuro: Awake and alert, GCS 15, oriented to person, place, time, and situation. Cranial nerves II-XII grossly intact. Motor strength 5/5 in all extremities. Sensory grossly intact. Cerebellar exam normal. Normal gait. 20:59 Chest/axilla: Inspection: Palpation: tenderness, that is moderate, that totally reproduces the patient's complaints. Vital Signs: 19:23 BP 147 / 99; Pulse 77; Resp 18; Temp 98.2; Pulse Ox 99% on R/A; Weight 88.45 kg (R); lp1 Height 5 ft. 6 in. (167.64 cm); Pain 9/10; 20:00 BP 134 / 85; Pulse 66; Resp 18; Pulse Ox 100% on R/A; vc 21:00 BP 138 / 91; Pulse 77; Resp 16; Pulse Ox 100% on R/A; vc 19:23 Body Mass Index 31.47 (88.45 kg, 167.64 cm) lp1 MDM: 19:35 Patient medically screened. tw4 20:59 Differential diagnosis: Blunt Chest Trauma Pneumothorax Pulmonary Contusion Rib tw4 Fracture. Data reviewed: vital signs, nurses notes. Data reviewed: radiologic studies, plain films. Data interpreted: Pulse oximetry: Interpretation: normal. Counseling: I had a detailed discussion with the patient and/or guardian regarding: the historical points, exam findings, and any diagnostic results supporting the discharge/admit diagnosis, radiology results. Medication response: Toradol markedly relieved the patient's pain. Response to treatment: and as a result, I will discharge patient, administer pain medication, ibuprofen. 09/06 19:20 Order name: CXR XRAY; Complete Time: 20:48 tw4 09/06 20:48 Interpretation: No acute disease. tw4 09/06 19:37 Order name: Ribs Right XRAY; Complete Time: 20:47 tw4 09/06 20:48 Interpretation: No acute disease. tw4 Administered Medications: 20:17 Drug: TORadol 60 mg {Note: 1 ml administered in left and right deltoid per patient vc request.} Route: IM; Site: Other; 21:07 Follow up: Response: No adverse reaction; Pain is decreased vc Disposition: 09/07/19 20:51 Discharged to Home. Impression: Contusion of right front wall of thorax. - Condition is Stable. - Discharge Instructions: Chest Wall Pain, Chest Contusion, Adult. - Prescriptions for Ibuprofen 800 mg Oral Tablet - take 1 tablet by ORAL route every 8 hours As needed take with food; 30 tablet. Tramadol 50 mg Oral Tablet - take 1 tablet by ORAL route every 8 hours as needed; 12 tablet. - Medication Reconciliation Form, Thank You Letter, Antibiotic Education, Prescription Opioid Use form. - Follow up: Private Physician; When: Upon discharge from the Emergency Department; Reason: Recheck today's complaints, Continuance of care, Re-evaluation by your physician. - Problem is new. - Symptoms have improved. Signatures: Dispatcher [employer] [facility] Keily Vasquez RN RN lp1 Daryl Gloria MD MD tw4 Ursula Joshi RN RN vc Corrections: (The following items were deleted from the chart) 20:05 19:21 Ribs Left+RAD.RAD.BRZ ordered. [facility] 21:00 20:58 Constitutional: This is a well developed, well nourished patient who is awake, tw4 alert, and in no acute distress. Head/Face: Normocephalic, atraumatic. Chest/axilla: Normal chest wall appearance and motion. Nontender with no deformity. No lesions are appreciated. Cardiovascular: Regular rate and rhythm with a normal S1 and S2. No gallops, murmurs, or rubs. Normal PMI, no JVD. No pulse deficits. Respiratory: Lungs have equal breath sounds bilaterally, clear to auscultation and percussion. No rales, rhonchi or wheezes noted. No increased work of breathing, no retractions or nasal flaring. Abdomen/GI: Soft, non-tender, with normal bowel sounds. No distension or tympany. No guarding or rebound. No evidence of tenderness throughout. Back: No spinal tenderness. No costovertebral tenderness. Full range of motion. MS/ Extremity: Pulses equal, no cyanosis. Neurovascular intact. Full, normal range of motion. Neuro: Awake and alert, GCS 15, oriented to person, place, time, and situation. Cranial nerves II-XII grossly intact. Motor strength 5/5 in all extremities. Sensory grossly intact. Cerebellar exam normal. Normal gait. tw4 21:08 20:51 09/07/2019 20:51 Discharged to Home. Impression: Contusion of right front wall of vc thorax. Condition is Stable. Forms are Medication Reconciliation Form, Thank You Letter, Antibiotic Education, Prescription Opioid Use. Follow up: Private Physician; When: Upon discharge from the Emergency Department; Reason: Recheck today's complaints, Continuance of care, Re-evaluation by your physician. Problem is new. Symptoms have improved. tw4
--- NOTE | 2019-09-07 20:51 | ER ---
Nurse's Notes [facility] Name: Gucci Santoyo Age: 23 yrs Sex: Male : 1995 Arrival Date: 09/07/2019 Time: 19:12 Bed 24 Private MD: Diagnosis: Contusion of right front wall of thorax Presentation: 09/06 19:19 Chief complaint: Patient states: "I had a fall a couple days ago, and when I move my lp1 arm there is excruciating pain in my chest"; States tripping over a railing about 3 foot fall 2 days ago; States pain with walking, breathing; I feel like it's underneath the muscle"; Pointing to right side of anterior chest. Coronavirus screen: Proceed with normal triage. Ebola Screen: No symptoms or risks identified at this time. Risk Assessment: Do you want to hurt yourself or someone else? Patient reports no desire to harm self or others. Onset of symptoms was September 05, 2019. 19:19 Method Of Arrival: Ambulatory lp1 19:19 Acuity: JACQUI 3 lp1 19:25 Initial Sepsis Screen: Does the patient meet any 2 criteria? No. Patient's initial lp1 sepsis screen is negative. Does the patient have a suspected source of infection? No. Patient's initial sepsis screen is negative. Historical: - Allergies: 19:22 No Known Allergies; lp1 - Home Meds: 19:22 pantoprazole Oral [Active]; lp1 - PMHx: 19:22 None; lp1 - PSHx: 19:22 None; lp1 - Immunization history:: Adult Immunizations up to date. - Social history:: Smoking status: Patient denies any tobacco usage or history of. Screenin:22 Abuse screen: Denies threats or abuse. Denies injuries from another. Nutritional lp1 screening: No deficits noted. Tuberculosis screening: No symptoms or risk factors identified. Fall Risk None identified. Assessment: 19:40 General: Appears in no apparent distress. uncomfortable, slender, well groomed, vc Behavior is calm, cooperative, appropriate for age. Pain: Complains of pain in anterior aspect of right upper chest, mid-sternal area and right breast Pain does not radiate. Pain currently is 9 out of 10 on a pain scale. at worst was 10 out of 10 on a pain scale. Quality of pain is described as sharp, shooting, stabbing, Pain began 2-3 days ago. Aggravated by exercise, increased activity, repositioning, taking deep breaths. Pain: Noted to be grimacing, guarding, resistant to movement. Neuro: Level of Consciousness is awake, alert, obeys commands, Oriented to person, place, time, situation, Appropriate for age. Cardiovascular: Capillary refill < 3 seconds Patient's skin is warm and dry. Respiratory: Airway is patent Respiratory effort is even, unlabored, shallow, Respiratory pattern is symmetrical. GI: No signs and/or symptoms were reported involving the gastrointestinal system. : No signs and/or symptoms were reported regarding the genitourinary system. Derm: Skin is intact, is healthy with good turgor, Wound noted right elbow and palmar aspect of right forearm. Musculoskeletal: Circulation, motion, and sensation intact. Range of motion: intact in all extremities. 20:50 Reassessment: Patient appears in no apparent distress at this time. Patient and/or vc family updated on plan of care and expected duration. Pain level reassessed. Patient is alert, oriented x 3, equal unlabored respirations, skin warm/dry/pink. Vital Signs: 19:23 BP 147 / 99; Pulse 77; Resp 18; Temp 98.2; Pulse Ox 99% on R/A; Weight 88.45 kg (R); lp1 Height 5 ft. 6 in. (167.64 cm); Pain 9/10; 20:00 BP 134 / 85; Pulse 66; Resp 18; Pulse Ox 100% on R/A; vc 21:00 BP 138 / 91; Pulse 77; Resp 16; Pulse Ox 100% on R/A; vc 19:23 Body Mass Index 31.47 (88.45 kg, 167.64 cm) lp1 ED Course: 19:12 Patient arrived in ED. cf2 19:19 Daryl Gloria MD is Attending Physician. tw4 19:22 Triage completed. lp1 19:22 Arm band placed on left wrist. lp1 19:27 Ursula Joshi, SUKI is Primary Nurse. vc 19:43 Patient has correct armband on for positive identification. Bed in low position. Call vc light in reach. Pulse ox on. NIBP on. 19:43 Patient maintains SpO2 saturation greater than 95% on room air. vc 20:05 CXR XRAY In Process Unspecified. EDMS 20:06 Ribs Right XRAY In Process Unspecified. EDMS 21:07 No provider procedures requiring assistance completed. Patient did not have IV access vc during this emergency room visit. Administered Medications: 20:17 Drug: TORadol 60 mg {Note: 1 ml administered in left and right deltoid per patient vc request.} Route: IM; Site: Other; 21:07 Follow up: Response: No adverse reaction; Pain is decreased vc Outcome: 20:51 Discharge ordered by MD. cruz 21:07 Discharged to home ambulatory. vc 21:07 Condition: good 21:07 Discharge instructions given to patient, Instructed on discharge instructions, follow up and referral plans. no drinking with medication, no driving heavy equipment, medication usage, Demonstrated understanding of instructions, follow-up care, medications, Prescriptions given X 2. 21:08 Patient left the ED. vc Signatures: Dispatcher [employer] EDMS Keily Vasquez RN RN lp1 Daryl Gloria MD MD tw4 Isael Hurst cf2 Ursula Joshi RN RN vc Corrections: (The following items were deleted from the chart) 19:25 19:19 Chief complaint: Patient states: "I had a fall a couple days ago, and when I move lp1 my arm there is excruciating pain"; States tripping over a railing about 3 foot fall; States pain with walking, breathing; I feel like it's underneath the muscle" lp1 20:27 19:23 BP 147 / 99; Pulse 77bpm; Resp 18bpm; Temp 98.2F; 88.45 kg Reported; Height 5 ft. lp1 6 in.; BMI: 31.4; Pain 9/10; lp1
[2019-09-07 21:51] VITALS: TEMP 98.2
[2019-09-07 21:52] VITALS: O2SAT 100
[2019-09-07 21:53] VITALS: BP 138/91
== END 2019-09-07 21:08 | disposition home or self-care (01) ==
LOC: ER 19:09
DX: S20.211A Contusion of right front wall of thorax, initial encounter (principal); W19.XXXA Unspecified fall, initial encounter; Y93.89 Activity, other specified; Y92.9 Unspecified place or not applicable
CPT/HCPCS: 71045; 96372; 99284

== ENCOUNTER 2019-09-16 13:46 | Emergency (ER) | payer SELFPAY ==
--- NOTE | 2019-09-16 15:51 | RAD REPORT ---
EXAM DESCRIPTION: RAD - Chest Pa And Lat (2 Views) - 09/16/2019 3:41 pm CLINICAL HISTORY: PAIN, decreased range of motion to the right arm because of pain COMPARISON: PA chest September 06 TECHNIQUE: Frontal and lateral views of the chest were obtained. FINDINGS: The lungs are clear. No pulmonary contusion or other lung parenchymal abnormality seen. H eart size is normal and central vasculature is within normal limits. No pleural effusion or pneumoth orax seen. No gross deformity of the ribcage identifiable. Clavicle, acromioclavicular and sternocla vicular joints on the right are unremarkable. No aortic abnormality. IMPRESSION: No acute cardiopulmonary process.
[2019-09-16 16:38] VITALS: TEMP 98.7
[2019-09-16 16:40] VITALS: BP 130/87; O2SAT 100
--- NOTE | 2019-09-20 15:57 | ER ---
Nurse's Notes [facility] Name: Gucci Santoyo Age: 23 yrs Sex: Male : 1995 Arrival Date: 09/16/2019 Time: 13:49 Bed 17 Private MD: Diagnosis: Chest wall contusion Presentation: 09/15 14:06 Chief complaint: Patient states: fell over a week ago and has not been able to move his iw right arm bc of pain in his ribs, was seen here and had xray, had a small fracture, prescribed meds but he can't move his arm. Coronavirus screen: Proceed with normal triage. Patient denies a cough. Patient denies shortness of breath or difficulty breathing. Patient denies measured and/or subjective temperature greater than 100.4F prior to today's visit. Patient denies travel on a cruise ship or to a country the [facility] currently lists as an affected area. Patient denies contact with known and/or suspected case of COVID-19. Ebola Screen: Patient negative for fever greater than or equal to 101.5 degrees Fahrenheit, and additional compatible Ebola Virus Disease symptoms Patient denies exposure to infectious person. Patient denies travel to an Ebola-affected area in the 21 days before illness onset. No symptoms or risks identified at this time. Initial Sepsis Screen: Does the patient meet any 2 criteria? No. Patient's initial sepsis screen is negative. Does the patient have a suspected source of infection? No. Patient's initial sepsis screen is negative. Risk Assessment: Do you want to hurt yourself or someone else? Patient reports no desire to harm self or others. Onset of symptoms was September 07, 2019. 14:06 Method Of Arrival: Ambulatory iw 14:06 Acuity: JACQUI 4 iw Historical: - Allergies: 14:09 No Known Allergies; iw - Home Meds: 14:09 None [Active]; iw - PMHx: 14:09 None; iw - PSHx: 14:09 None; iw - Immunization history:: Adult Immunizations. - Social history:: Smoking status: Patient reports the use of cigarette tobacco products, denies chronic smoking, but will smoke occasionally. Screenin:35 Abuse screen: Denies threats or abuse. Denies injuries from another. Nutritional ca1 screening: No deficits noted. Tuberculosis screening: No symptoms or risk factors identified. Fall Risk None identified. Assessment: 14:35 General: Appears in no apparent distress. uncomfortable, Behavior is calm, cooperative, ca1 appropriate for age. Pain: Complains of pain in anterior aspect of right upper chest and mid-sternal area Pain currently is 9 out of 10 on a pain scale. Pain: Aggravated by repositioning. Neuro: Level of Consciousness is awake, alert, obeys commands, Oriented to person, time, situation. Cardiovascular: Heart tones S1 S2 present Capillary refill < 3 seconds Patient's skin is warm and dry. Respiratory: Airway is patent Respiratory effort is even, unlabored, Respiratory pattern is regular, symmetrical, Breath sounds are clear bilaterally. GI: Abdomen is round non-distended, Bowel sounds present X 4 quads. Abd is soft and non tender X 4 quads. : No signs and/or symptoms were reported regarding the genitourinary system. EENT: No signs and/or symptoms were reported regarding the EENT system. Derm: Skin is intact, is healthy with good turgor, Skin is pink, warm \T\ dry. Musculoskeletal: Circulation, motion, and sensation intact. Capillary refill < 3 seconds. 15:30 Reassessment: Patient appears in no apparent distress at this time. Patient and/or ca1 family updated on plan of care and expected duration. Pain level reassessed. Patient is alert, oriented x 3, equal unlabored respirations, skin warm/dry/pink. 16:30 Reassessment: Patient appears in no apparent distress at this time. Patient is alert, ca1 oriented x 3, equal unlabored respirations, skin warm/dry/pink. Vital Signs: 14:06 BP 141 / 89; Pulse 77; Resp 16; Temp 98.7; Pulse Ox 100% ; Weight 88.45 kg; Height 5 iw ft. 6 in. (167.64 cm); Pain 8/10; 14:56 BP 123 / 95; Pulse 86; Resp 15 S; Pulse Ox 99% on R/A; ca1 16:00 BP 130 / 87; Pulse 71; Resp 16 S; Pulse Ox 100% on R/A; ca1 14:06 Body Mass Index 31.47 (88.45 kg, 167.64 cm) iw ED Course: 13:49 Patient arrived in ED. bp1 14:08 Triage completed. iw 14:09 Arm band placed on. iw 14:30 Acob, Jessica, RN is Primary Nurse. ca1 14:35 Patient has correct armband on for positive identification. Bed in low position. Call ca1 light in reach. Side rails up X 1. Pulse ox on. NIBP on. 14:48 Dario Mcdaniel MD is Attending Physician. kdr 14:54 Marin Berman PA is PHCP. jr8 15:39 XRAY Chest Pa And Lat (2 Views) In Process Unspecified. EDMS 16:30 No provider procedures requiring assistance completed. Patient did not have IV access ca1 during this emergency room visit. Administered Medications: No medications were administered Outcome: 16:11 Discharge ordered by . jr8 16:31 Discharged to home ambulatory. ca1 16:31 Condition: stable 16:31 Discharge instructions given to patient, Instructed on discharge instructions, follow up and referral plans. no drinking with medication, no driving heavy equipment, medication usage, Demonstrated understanding of instructions, follow-up care, medications, Prescriptions given X 1. 16:31 Patient left the ED. ca1 Signatures: Dispatcher [employer] EDAR Dario Mcadniel MD MD [facility] Melony Whaley RN RN Marin Berman PA PA jr8 Jessica Gannon, SUKI RN ca1 Mariah Wyatt bp1
--- NOTE | 2019-09-20 15:57 | EDPHYS ---
Physician Documentation [facility] Name: Gcuci Santoyo Age: 23 yrs Sex: Male : 1995 Arrival Date: 09/16/2019 Time: 13:49 Bed 17 Private MD: ED Physician Dario Mcdaniel HPI: 09/15 16:08 This 23 yrs old Male presents to ER via Ambulatory with complaints of RIb pain.jr8 16:08 The patient or guardian reports chest pain that is located primarily in the anterior jr8 chest wall, anterior aspect of right upper chest. The pain does not radiate. Associated signs and symptoms: The patient has no apparent associated signs or symptoms. The chest pain is described as sharp, stabbing. Duration: The patient or guardian reports multiple episodes. Modifying factors: The symptoms are alleviated by nothing. the symptoms are aggravated by cough, deep breath, movement. Severity of pain: At its worst the pain was moderate in the emergency department the pain is unchanged. The patient has not experienced similar symptoms in the past. The patient has been recently seen by a physician:. Patient recently seen in ED here for fractured rib. Was given pain medicine and sent home. Stated that it is still hurting. Historical: - Allergies: 14:09 No Known Allergies; iw - Home Meds: 14:09 None [Active]; iw - PMHx: 14:09 None; iw - PSHx: 14:09 None; iw - Immunization history:: Adult Immunizations. - Social history:: Smoking status: Patient reports the use of cigarette tobacco products, denies chronic smoking, but will smoke occasionally. ROS: 16:08 Eyes: Negative for injury, pain, redness, and discharge, ENT: Negative for injury, jr8 pain, and discharge, Neck: Negative for injury, pain, and swelling, Respiratory: Negative for shortness of breath, cough, wheezing, and pleuritic chest pain, Abdomen/GI: Negative for abdominal pain, nausea, vomiting, diarrhea, and constipation, Back: Negative for injury and pain, MS/Extremity: Negative for injury and deformity, Skin: Negative for injury, rash, and discoloration, Neuro: Negative for headache, weakness, numbness, tingling, and seizure. 16:08 Cardiovascular: Positive for chest pain, with cough, with movement. Exam: 16:08 Eyes: Pupils equal round and reactive to light, extra-ocular motions intact. Lids and jr8 lashes normal. Conjunctiva and sclera are non-icteric and not injected. Cornea within normal limits. Periorbital areas with no swelling, redness, or edema. ENT: Nares patent. No nasal discharge, no septal abnormalities noted. Tympanic membranes are normal and external auditory canals are clear. Oropharynx with no redness, swelling, or masses, exudates, or evidence of obstruction, uvula midline. Mucous membranes moist. Neck: Trachea midline, no thyromegaly or masses palpated, and no cervical lymphadenopathy. Supple, full range of motion without nuchal rigidity, or vertebral point tenderness. No Meningismus. Cardiovascular: Regular rate and rhythm with a normal S1 and S2. No gallops, murmurs, or rubs. Normal PMI, no JVD. No pulse deficits. Respiratory: Lungs have equal breath sounds bilaterally, clear to auscultation and percussion. No rales, rhonchi or wheezes noted. No increased work of breathing, no retractions or nasal flaring. Abdomen/GI: Soft, non-tender, with normal bowel sounds. No distension or tympany. No guarding or rebound. No evidence of tenderness throughout. Back: No spinal tenderness. No costovertebral tenderness. Full range of motion. Skin: Warm, dry with normal turgor. Normal color with no rashes, no lesions, and no evidence of cellulitis. MS/ Extremity: Pulses equal, no cyanosis. Neurovascular intact. Full, normal range of motion. Neuro: Awake and alert, GCS 15, oriented to person, place, time, and situation. Cranial nerves II-XII grossly intact. Motor strength 5/5 in all extremities. Sensory grossly intact. Cerebellar exam normal. Normal gait. 16:08 Chest/axilla: Inspection: normal, Palpation: tenderness, that is moderate, of the anterior aspect of right upper chest, Lymph nodes: lymphadenopathy is not appreciated. Vital Signs: 14:06 BP 141 / 89; Pulse 77; Resp 16; Temp 98.7; Pulse Ox 100% ; Weight 88.45 kg; Height 5 iw ft. 6 in. (167.64 cm); Pain 8/10; 14:56 BP 123 / 95; Pulse 86; Resp 15 S; Pulse Ox 99% on R/A; ca1 16:00 BP 130 / 87; Pulse 71; Resp 16 S; Pulse Ox 100% on R/A; ca1 14:06 Body Mass Index 31.47 (88.45 kg, 167.64 cm) MDM: 14:55 Patient medically screened. jr8 16:10 Data reviewed: vital signs, nurses notes, radiologic studies, plain films, and as a jr8 result, I will discharge patient. Data interpreted: Pulse oximetry: on room air is 99 %. Interpretation: normal. Counseling: I had a detailed discussion with the patient and/or guardian regarding: the historical points, exam findings, and any diagnostic results supporting the discharge/admit diagnosis, radiology results, the need for outpatient follow up, a family practitioner, to return to the emergency department if symptoms worsen or persist or if there are any questions or concerns that arise at home. 16:11 ED course: Patient had tramadol filled 9 days ago but has taken all the medication as jr8 instructed. 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 Ok to have one more prescription for pain . 09/15 15:09 Order name: XRAY Chest Pa And Lat (2 Views); Complete Time: 16:07 jr8 Administered Medications: No medications were administered Disposition: 09/16/19 16:11 Discharged to Home. Impression: Chest wall contusion . - Condition is Stable. - Discharge Instructions: Chest Wall Pain, Blunt Chest Trauma. - Prescriptions for Tramadol 50 mg Oral Tablet - take 1 tablet by ORAL route every 8 hours as needed; 12 tablet. - Work release form, Medication Reconciliation Form, Thank You Letter, Antibiotic Education, Prescription Opioid Use form. - Follow up: Private Physician; When: 5 - 6 days; Reason: Recheck today's complaints, Continuance of care, Re-evaluation by your physician. - Problem is new. - Symptoms are unchanged. Addendum: 09/18/2019 07:54 Co-signature as Attending Physician, Dario Mcdaniel MD I agree with the assessment and k plan of care. Signatures: Dispatcher [employer] EDMS Dario Mcdaniel MD MD [facility] Melony Whaley RN RN Marin Berman PA PA jr8 Jessica Gannon RN RN ca1 Corrections: (The following items were deleted from the chart) 09/15 16:31 16:11 09/16/2019 16:11 Discharged to Home. Impression: Chest wall contusion . Condition ca1 is Stable. Forms are Medication Reconciliation Form, Thank You Letter, Antibiotic Education, Prescription Opioid Use. Follow up: Private Physician; When: 5 - 6 days; Reason: Recheck today's complaints, Continuance of care, Re-evaluation by your physician. Problem is new. Symptoms are unchanged. jr8
== END 2019-09-16 16:31 | disposition home or self-care (01) ==
LOC: ER 13:46
DX: S20.219A Contusion of unspecified front wall of thorax, initial encounter (principal); Z72.0 Tobacco use
CPT/HCPCS: 71046; 99283

== ENCOUNTER 2020-06-24 07:28 | Emergency (ER) | payer SELFPAY ==
[2020-06-24 08:45] LABS: SARS-COV-2 RT PCR POSITIVE (NEGATIVE)
--- NOTE | 2020-06-24 08:48 | EDPHYS ---
Physician Documentation [facility] Name: Gucci Santoyo Age: 24 yrs Sex: Male : 1995 Arrival Date: 06/24/2020 Time: 07:31 Bed 20 Private MD: KARIN Physician Henrry Perera HPI: 06/24 07:45 This 24 yrs old Male presents to ER via Ambulatory with complaints of r/o mh7 covid. 07:45 The patient presents with sore throat. The patient describes throat pain as mh7 intermittent. Onset: The symptoms/episode began/occurred 1 week(s) ago. Severity of symptoms: At their worst the symptoms were mild, last night, in the emergency department the symptoms are unchanged. Modifying factors: The symptoms are alleviated by nothing, the symptoms are aggravated by nothing, Patient's oral intake status: good. Associated signs and symptoms: Pertinent positives: chills, cough, flu-like symptoms, myalgias, rhinorrhea, Sore throat Pertinent negatives chest pain, diarrhea, dysphagia, earache, fever, headache, nausea, shortness of breath, vomiting. 08:01 Some coworkers with similar symptoms.. mh7 Historical: - Allergies: 07:44 No Known Allergies; aa5 - Home Meds: 07:44 None [Active]; aa5 - PMHx: 07:44 None; aa5 - PSHx: 07:44 None; aa5 - Immunization history:: Adult Immunizations up to date. - Social history:: Smoking status: Reported history of juuling and/or vaping. ROS: 07:45 Eyes: Negative for injury, pain, redness, and discharge, Neck: Negative for injury, mh7 pain, and swelling, Cardiovascular: Negative for chest pain, palpitations, and edema, Abdomen/GI: Negative for abdominal pain, nausea, vomiting, diarrhea, and constipation, Back: Negative for injury and pain, : Negative for injury, bleeding, discharge, and swelling, MS/Extremity: Negative for injury and deformity, Skin: Negative for injury, rash, and discoloration, Neuro: Negative for headache, weakness, numbness, tingling, and seizure, Psych: Negative for depression, anxiety, suicide ideation, homicidal ideation, and hallucinations, Allergy/Immunology: Negative for hives, rash, and allergies, Endocrine: Negative for neck swelling, polydipsia, polyuria, polyphagia, and marked weight changes, Hematologic/Lymphatic: Negative for swollen nodes, abnormal bleeding, and unusual bruising. Exam: 07:45 Constitutional: This is a well developed, well nourished patient who is awake, alert, mh7 and in no acute distress. Head/Face: Normocephalic, atraumatic. Eyes: Pupils equal round and reactive to light, extra-ocular motions intact. Lids and lashes normal. Conjunctiva and sclera are non-icteric and not injected. Cornea within normal limits. Periorbital areas with no swelling, redness, or edema. ENT: Nares patent. No nasal discharge, no septal abnormalities noted. Tympanic membranes are normal and external auditory canals are clear. Oropharynx with no redness, swelling, or masses, exudates, or evidence of obstruction, uvula midline. Mucous membranes moist. Neck: Trachea midline, no thyromegaly or masses palpated, and no cervical lymphadenopathy. Supple, full range of motion without nuchal rigidity, or vertebral point tenderness. No Meningismus. Chest/axilla: Normal chest wall appearance and motion. Nontender with no deformity. No lesions are appreciated. Cardiovascular: Regular rate and rhythm with a normal S1 and S2. No gallops, murmurs, or rubs. Normal PMI, no JVD. No pulse deficits. Respiratory: Lungs have equal breath sounds bilaterally, clear to auscultation and percussion. No rales, rhonchi or wheezes noted. No increased work of breathing, no retractions or nasal flaring. Abdomen/GI: Soft, non-tender, with normal bowel sounds. No distension or tympany. No guarding or rebound. No evidence of tenderness throughout. Back: No spinal tenderness. No costovertebral tenderness. Full range of motion. Skin: Warm, dry with normal turgor. Normal color with no rashes, no lesions, and no evidence of cellulitis. MS/ Extremity: Pulses equal, no cyanosis. Neurovascular intact. Full, normal range of motion. Neuro: Awake and alert, GCS 15, oriented to person, place, time, and situation. Cranial nerves II-XII grossly intact. Motor strength 5/5 in all extremities. Sensory grossly intact. Cerebellar exam normal. Normal gait. Psych: Awake, alert, with orientation to person, place and time. Behavior, mood, and affect are within normal limits. Vital Signs: 07:35 BP 151 / 97; Pulse 85; Resp 18 S; Temp 98.5(O); Pulse Ox 99% on R/A; aa5 08:30 BP 113 / 75; Pulse 66; Resp 17; Pulse Ox 98% on R/A; rb3 MDM: 08:15 Patient medically screened. [facility] 06/24 07:43 Order name: Influenza Screen (a \\T\\ B) [facility] 06/24 07:43 Order name: Rapid Strep [facility] 06/24 07:43 Order name: COVID-19 : Document "Date of Symptom Onset" if Symptomatic. [facility] 06/24 08:05 Order name: CORONAVIRUS [facility] 06/24 08:05 Order name: Influenza Screen (A EDND 06/24 08:16 Order name: Group A Streptococcus Rapid Sc [facility] 06/24 08:46 Order name: COVID-19/FLU A+B EDMS Administered Medications: 08:50 Drug: predniSONE 60 mg Route: PO; rb3 09:02 Follow up: Response: Medication administered at discharge. rb3 08:50 Drug: Pepcid 20 mg Route: PO; rb3 09:02 Follow up: Response: Medication administered at discharge. rb3 08:50 Drug: Zithromax 500 mg Route: PO; rb3 09:01 Follow up: Response: Medication administered at discharge. rb3 08:50 Drug: Aspirin 162 mg Route: PO; rb3 09:01 Follow up: Response: Medication administered at discharge. rb3 Disposition: 06/24/20 08:47 Discharged to Home. Impression: Acute upper respiratory infection, unspecified - covid 19. - Condition is Stable. - Discharge Instructions: Upper Respiratory Infection, Adult, Aspirin and Your Heart, Cough, Adult, COVID-19. - Prescriptions for Pepcid 20 mg Oral Tablet - take 1 tablet by ORAL route every 12 hours for 15 days; 60 tablet. Zithromax Z- Loi 250 mg Oral Tablet - take 1 tablet by ORAL route as directed for 5 days Day 1 - take two (2) tablets one time. Day 2, 3, 4 , 5 take one (1) tablet once daily.; 6 tablet. Medrol (Loi) 4 mg Oral Tablets, Dose Pack - take 1 tablet by ORAL route as directed - follow package instructions; 1 packet. - Medication Reconciliation Form, Thank You Letter, Antibiotic Education, Prescription Opioid Use, Work release form form. - Follow up: Private Physician; When: 2 - 3 days; Reason: Recheck today's complaints, Continuance of care, Re-evaluation by your physician. Follow up: Elmo Chavez; When: 2 - 3 days; Reason: Recheck today's complaints, Re-evaluation by your physician. - Problem is new. - Symptoms have improved. Signatures: Dispatcher [employer] EDMS Henrry Perera MD MD cha Calderon, Audri, RN RN aa5 Dino Moreau MD MD mh7 Alexa Guardado, RN RN rb3 Corrections: (The following items were deleted from the chart) 09:06 08:47 06/24/2020 08:47 Discharged to Home. Impression: Acute upper respiratory rb3 infection, unspecified - covid 19. Condition is Stable. Discharge Instructions: Upper Respiratory Infection, Adult, Aspirin and Your Heart, Cough, Adult, COVID-19. Prescriptions for Pepcid 20 mg Oral Tablet - take 1 tablet by ORAL route every 12 hours for 15 days; 60 tablet, Zithromax Z-Loi 250 mg Oral Tablet - take 1 tablet by ORAL route as directed for 5 days Day 1 - take two (2) tablets one time. Day 2, 3, 4 , 5 take one (1) tablet once daily.; 6 tablet, Medrol (Loi) 4 mg Oral Tablets, Dose Pack - take 1 tablet by ORAL route as directed - follow package instructions; 1 packet. and Forms are Work release form, Medication Reconciliation Form, Thank You Letter, Antibiotic Education, Prescription Opioid Use. Follow up: Private Physician; When: 2 - 3 days; Reason: Recheck today's complaints, Continuance of care, Re-evaluation by your physician. Follow up: Elmo Chavez; When: 2 - 3 days; Reason: Recheck today's complaints, Re-evaluation by your physician. Problem is new. Symptoms have improved. kobe
--- NOTE | 2020-06-24 08:48 | ER ---
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 07:33 Coronavirus screen: Client presents with at least one sign or symptom that may indicate aa5 coronavirus-19. Standard/surgical mask placed on the client. Provider contacted for isolation considerations. Ebola Screen: Patient negative for fever greater than or equal to 101.5 degrees Fahrenheit, and additional compatible Ebola Virus Disease symptoms. Initial Sepsis Screen: Does the patient meet any 2 criteria? No. Patient's initial sepsis screen is negative. Does the patient have a suspected source of infection? No. Patient's initial sepsis screen is negative. Risk Assessment: Do you want to hurt yourself or someone else? Patient reports no desire to harm self or others. Onset of symptoms was June 17, 2020. 07:33 Acuity: JACQUI 4 aa5 07:33 Method Of Arrival: Ambulatory aa5 Historical: - Allergies: 07:44 No Known Allergies; aa5 - Home Meds: 07:44 None [Active]; aa5 - PMHx: 07:44 None; aa5 - PSHx: 07:44 None; aa5 - Immunization history:: Adult Immunizations up to date. - Social history:: Smoking status: Reported history of juuling and/or vaping. Screenin:35 Abuse screen: Denies threats or abuse. Nutritional screening: No deficits noted. rb3 Tuberculosis screening: No symptoms or risk factors identified. Fall Risk None identified. Assessment: 07:35 General: Appears in no apparent distress. comfortable, Behavior is calm, cooperative, rb3 Reports chills for. Pain: Denies pain. Neuro: Level of Consciousness is awake, alert, obeys commands, Oriented to person, place, time, situation. Cardiovascular: Capillary refill < 3 seconds Patient's skin is warm and dry. Respiratory: Reports loss of smell Airway is patent Respiratory effort is even, unlabored, Respiratory pattern is regular, symmetrical. GI: No signs and/or symptoms were reported involving the gastrointestinal system. : No signs and/or symptoms were reported regarding the genitourinary system. EENT: Reports sore throat. 08:30 Reassessment: Patient appears in no apparent distress at this time. No changes from rb3 previously documented assessment. Vital Signs: 07:35 BP 151 / 97; Pulse 85; Resp 18 S; Temp 98.5(O); Pulse Ox 99% on R/A; aa5 08:30 BP 113 / 75; Pulse 66; Resp 17; Pulse Ox 98% on R/A; rb3 ED Course: 07:31 Patient arrived in ED. as 07:33 Arm band placed on Patient placed in an exam room, on a stretcher. aa5 07:34 Dino Moreau MD is Attending Physician. 7 07:35 Patient has correct armband on for positive identification. Bed in low position. Call rb3 light in reach. Side rails up X 1. Pulse ox on. NIBP on. 07:41 Alexa Guardado, RN is Primary Nurse. rb3 07:43 Triage completed. aa5 07:57 COVID swab sent to lab. Flu and/or RSV swab sent to lab. Strep swab sent to lab. rb3 08:15 Attending Physician role handed off by Dino Moreau MD kobe 08:15 Henrry Perera MD is Attending Physician. kobe 08:47 Elmo Chavez MD is Referral Physician. kobe 08:58 No provider procedures requiring assistance completed. Patient did not have IV access rb3 during this emergency room visit. Administered Medications: 08:50 Drug: predniSONE 60 mg Route: PO; rb3 09:02 Follow up: Response: Medication administered at discharge. rb3 08:50 Drug: Pepcid 20 mg Route: PO; rb3 09:02 Follow up: Response: Medication administered at discharge. rb3 08:50 Drug: Zithromax 500 mg Route: PO; rb3 09:01 Follow up: Response: Medication administered at discharge. rb3 08:50 Drug: Aspirin 162 mg Route: PO; rb3 09:01 Follow up: Response: Medication administered at discharge. rb3 Outcome: 08:47 Discharge ordered by MD. bullock 08:58 Patient left the ED. rb3 08:58 Discharged to home ambulatory. rb3 08:58 Condition: stable 08:58 Discharge instructions given to patient, Instructed on discharge instructions, follow up and referral plans. medication usage, Demonstrated understanding of instructions, follow-up care, medications, Prescriptions given X 3. Signatures: Henrry Perera MD MD cha Martinez, Amelia as Calderon, Audri, RN RN aa5 Dino Moreau MD MD mh7 Alexa Guardado, RN RN rb3 Corrections: (The following items were deleted from the chart) 09:08 09:06 Patient left the ED. rb3 rb3
[2020-06-24] MEDS ORDERED: ASPIRIN EC 81 MG TAB PO ONE (09:05)
[2020-06-24] MEDS ORDERED: AZITHROMYCIN 250 MG TAB ONE (09:05)
[2020-06-24] MEDS ORDERED: predniSONE 20 MG TAB ONE (09:06)
[2020-06-24] MEDS ORDERED: FAMOTIDINE 20 MG TAB ONE (09:06)
[2020-06-24 09:21] VITALS: TEMP 98.5
[2020-06-24 09:22] VITALS: BP 113/75; O2SAT 98
== END 2020-06-24 09:06 | disposition home or self-care (01) ==
LOC: ER 07:28
DX: U07.1 COVID-19 (principal); J06.9 Acute upper respiratory infection, unspecified
CPT/HCPCS: 0240U; 87070; 87081; 99284; J7512

== ENCOUNTER 2021-02-02 18:56 | Emergency (ER) | payer SELFPAY ==
--- NOTE | 2021-02-02 20:49 | ER ---
Nurse's Notes [facility] Name: Gucci Santoyo Age: 25 yrs Sex: Male : 1995 Arrival Date: 02/02/2021 Time: 18:59 Bed 11 Private MD: Diagnosis: Vomiting Presentation: 02/02 19:10 Chief complaint: Patient states: hematemesis x 5 since 1800, drank big red around 1600. sj1 rectal bleeding 1 month ago but now resolved, felt bloated earlier but denies abd pain at this time. Coronavirus screen: Vaccine status: Patient reports being unvaccinated. Ebola Screen: Patient negative for fever greater than or equal to 101.5 degrees Fahrenheit, and additional compatible Ebola Virus Disease symptoms Patient denies exposure to infectious person. Patient denies travel to an Ebola-affected area in the 21 days before illness onset. No symptoms or risks identified at this time. Initial Sepsis Screen: Does the patient meet any 2 criteria? No. Patient's initial sepsis screen is negative. Does the patient have a suspected source of infection? No. Patient's initial sepsis screen is negative. Risk Assessment: Do you want to hurt yourself or someone else? Patient reports no desire to harm self or others. Onset of symptoms was February 02, 2021. 19:10 Method Of Arrival: Ambulatory sj1 19:10 Acuity: JACQUI 3 sj1 20:45 Note No emesis noted during stay. Pt denies any pain at this time. df1 Triage Assessment: 19:15 General: Appears in no apparent distress. Behavior is calm, cooperative, appropriate sj1 for age. Pain: Denies pain. EENT: No deficits noted. Neuro: No deficits noted. Cardiovascular: No deficits noted. Respiratory: No deficits noted. GI: Reports vomiting. : No deficits noted. Derm: No deficits noted. Musculoskeletal: No deficits noted. Historical: - Allergies: 19:15 No Known Allergies; sj1 - Home Meds: 19:15 None [Active]; sj1 - PMHx: 19:15 GERD; sj1 - PSHx: 20:40 None; df1 - Immunization history:: Adult Immunizations up to date. - Social history:: Smoking status: Patient reports the use of cigarette tobacco products, smokes one-half pack cigarettes per day, Patient/guardian denies using alcohol, street drugs. Screenin:17 Abuse screen: Denies threats or abuse. Denies injuries from another. Nutritional sj1 screening: No deficits noted. Tuberculosis screening: No symptoms or risk factors identified. Fall Risk None identified. Assessment: 20:40 GI: Abdomen is flat, non-distended, Bowel sounds present X 4 quads. Abd is soft and non df1 tender X 4 quads. Vital Signs: 19:10 BP 133 / 93; Pulse 81; Resp 17 S; Temp 98.8; Pulse Ox 100% on R/A; Weight 90.72 kg (R); sj1 Height 5 ft. 6 in. (167.64 cm) (R); Pain 0/10; 20:41 BP 125 / 88; Pulse 82; Resp 18; Pulse Ox 100% on R/A; Pain 0/10; df1 19:10 Body Mass Index 32.28 (90.72 kg, 167.64 cm) sj1 ED Course: 18:59 Patient arrived in ED. mr 19:15 Triage completed. sj1 19:17 Patient has correct armband on for positive identification. sj1 19:17 Arm band placed on left wrist. sj1 19:53 Henrry Millan PA is PHCP. cp 19:53 Malcom Malik MD is Attending Physician. cp 20:33 Nicol Esposito is Primary Nurse. df1 20:40 No provider procedures requiring assistance completed. Patient did not have IV access df1 during this emergency room visit. 20:48 Ismael Hernandez MD is Referral Physician. cp Administered Medications: 20:40 Drug: ProTONIX (pantoprazole) 40 mg Route: PO; df1 20:40 Drug: Ondansetron 4 mg Route: PO; df1 Outcome: 20:49 Discharge ordered by . cp 21:01 Eloped after seeing physician df1 21:01 Patient left the ED. df1 Signatures: Shelia Grullon mr Henrry Millan PA PA cp Nicol Esposito df1 Karen Tee RN RN sj1 Corrections: (The following items were deleted from the chart) 19:18 19:10 Chief complaint: Patient states: hematemesis x 5 since 1800, drank big red around sj1 1600. rectal bleeding 1 month ago but now resolved sj1
--- NOTE | 2021-02-02 20:49 | EDPHYS ---
Physician Documentation [facility] Name: Gucci Santoyo Age: 25 yrs Sex: Male : 1995 Arrival Date: 02/02/2021 Time: 18:59 Bed 11 Private MD: ED Physician Malcom Malik HPI: 02/02 20:33 This 25 yrs old Male presents to ER via Ambulatory with complaints of Vomiting.cp 20:33 The patient presents to the emergency department with vomiting, that is intermittent, cp 4-5 episodes today. Onset: The symptoms/episode began/occurred today. Possible causes: unknown. Patient reports he was finished working today when he started having nausea, slight cough and had 4-5 episodes of forceful vomiting. Patient was concerned because he noticed bright red blood in vomitus. Patient denies any abdominal pain, denies diarrhea. Patient denies nausea at this time. Historical: - Allergies: 19:15 No Known Allergies; sj1 - Home Meds: 19:15 None [Active]; sj1 - PMHx: 19:15 GERD; sj1 - PSHx: 20:40 None; df1 - Immunization history:: Adult Immunizations up to date. - Social history:: Smoking status: Patient reports the use of cigarette tobacco products, smokes one-half pack cigarettes per day, Patient/guardian denies using alcohol, street drugs. ROS: 20:35 Constitutional: Negative for body aches, chills, fever, poor PO intake. cp 20:35 Eyes: Negative for injury, pain, redness, and discharge. cp 20:35 ENT: Negative for ear pain, sore throat, difficulty swallowing, difficulty handling secretions. 20:35 Cardiovascular: Negative for chest pain, palpitations. 20:35 Respiratory: Negative for cough, shortness of breath, wheezing. 20:35 Abdomen/GI: Positive for nausea, vomiting, hematemesis, Negative for abdominal pain, diarrhea, constipation, anorexia. 20:35 Back: Negative for pain at rest, pain with movement. 20:35 Neuro: Negative for altered mental status, headache, syncope, weakness. 20:35 All other systems are negative. Exam: 20:40 Constitutional: The patient appears in no acute distress, alert, awake, comfortable, cp non-toxic, well developed, well nourished. 20:40 Head/Face: Normocephalic, atraumatic. cp 20:40 Eyes: Periorbital structures: appear normal, Conjunctiva: normal, no exudate, no injection, Sclera: no appreciated abnormality, Lids and lashes: appear normal, bilaterally. 20:40 ENT: External ear(s): are unremarkable, Nose: is normal, Mouth: Lips: moist, Oral mucosa: moist, Posterior pharynx: Airway: no evidence of obstruction, patent. 20:40 Chest/axilla: Inspection: normal, Palpation: is normal, no crepitus, no tenderness. 20:40 Cardiovascular: Rate: normal, Rhythm: regular. 20:40 Respiratory: the patient does not display signs of respiratory distress, Respirations: normal, no use of accessory muscles, no retractions, labored breathing, is not present, Breath sounds: are clear throughout, no decreased breath sounds, no stridor, no wheezing. 20:40 Abdomen/GI: Inspection: abdomen appears normal, Bowel sounds: active, all quadrants, Palpation: abdomen is soft and non-tender, in all quadrants. 20:40 Back: pain, is absent, ROM is normal. Vital Signs: 19:10 BP 133 / 93; Pulse 81; Resp 17 S; Temp 98.8; Pulse Ox 100% on R/A; Weight 90.72 kg (R); sj1 Height 5 ft. 6 in. (167.64 cm) (R); Pain 0/10; 20:41 BP 125 / 88; Pulse 82; Resp 18; Pulse Ox 100% on R/A; Pain 0/10; df1 19:10 Body Mass Index 32.28 (90.72 kg, 167.64 cm) sj1 MDM: 20:21 Patient medically screened. cp 20:40 Differential diagnosis: gastritis, cholecystitis, viral gastroenteritis, cp gastroenteritis. 20:48 Data reviewed: vital signs, nurses notes. cp 20:48 Counseling: I had a detailed discussion with the patient and/or guardian regarding: the cp historical points, exam findings, and any diagnostic results supporting the discharge/admit diagnosis, to return to the emergency department if symptoms worsen or persist or if there are any questions or concerns that arise at home. ED course: VSS. Patient declines any meds at this time. Will discharge to home for continued monitoring. 02/02 20:32 Order name: PO challenge cp Administered Medications: 20:40 Drug: ProTONIX (pantoprazole) 40 mg Route: PO; df1 20:40 Drug: Ondansetron 4 mg Route: PO; df1 Disposition: 02/03 04:44 Co-signature as Attending Physician, Malcom Malik MD Did not see or evaluate patient. ps1 Signature is for administrative purposes and not an endorsement of care provided. . Disposition Summary: 02/02/21 20:49 Discharge Ordered Location: Home cp Problem: new cp Symptoms: are resolved cp Condition: Stable cp Diagnosis - Vomiting cp Followup: cp - With: Ismael Hernandez MD - When: 2 - 3 days - Reason: Recheck today's complaints Discharge Instructions: - Discharge Summary Sheet cp - Abigail-Fong Syndrome cp - Vomiting, Adult cp Forms: - Medication Reconciliation Form cp - Thank You Letter cp - Antibiotic Education cp - Prescription Opioid Use cp Prescriptions: - Protonix 40 mg Oral Tablet - take 1 tablet by ORAL route once daily; 30 tablet; Refills: 0, Product cp Selection Permitted - Zofran 4 mg Oral Tablet - take 1 tablet by ORAL route every 12 hours As needed; 20 tablet; Refills: 0, cp Product Selection Permitted Signatures: Henrry Millan PA PA cp Malcom Malik MD MD ps1 Nicol Espsoito df1 Karen Tee RN RN sj1 Corrections: (The following items were deleted from the chart) 02/02 20:12 20:12 Dressing - Wound ordered. cp cp 20:12 20:12 Splint - Finger ordered. cp cp
[2021-02-02] MEDS ORDERED: ONDANSETRON 4 MG (ODT) TAB ONE (21:00)
[2021-02-02] MEDS ORDERED: PANTOPRAZOLE 40MG TABLET PO ONE (21:00)
[2021-02-02 21:19] VITALS: TEMP 98.8; O2SAT 100
[2021-02-02 21:20] VITALS: BP 125/88
== END 2021-02-02 21:01 | disposition home or self-care (01) ==
LOC: ER 18:56
DX: R11.10 Vomiting, unspecified (principal); K21.9 Gastro-esophageal reflux disease without esophagitis; F17.210 Nicotine dependence, cigarettes, uncomplicated
CPT/HCPCS: 99282

== ENCOUNTER 2021-09-04 07:50 | Emergency (ER) | payer SELFPAY ==
[2021-09-04] MEDS ORDERED: NA CHLORIDE 0.9% 1,000 ML ONE (08:25)
[2021-09-04] MEDS ORDERED: FAMOTIDINE 20 MG/2 ML VIAL IV ONE (08:25)
[2021-09-04] MEDS ORDERED: ONDANSETRON 4 MG/2 ML VIAL ONE (08:25)
[2021-09-04 08:36] LABS: Absolute Lymphocytes (CBC) 2.3 K/uL (0.7-4.9); Hematocrit 41.1 % (39.6-49.0); Lymphocytes % 34.8 % (15.3-44.8); MPV 7.7 fL (7.6-11.3); RBC Red Blood Cell Count 4.55 M/uL (4.33-5.43)
[2021-09-04 08:45] LABS: Protime INR 0.84
[2021-09-04 08:47] LABS: Albumin 3.7 g/dL (3.4-5.0); Bilirubin Total 0.1 mg/dL (0.2-1.0); Potassium 3.9 mmol/L (3.5-5.1)
--- NOTE | 2021-09-04 09:18 | RAD REPORT ---
EXAM DESCRIPTION: CT - Abdomen Pelvis W Contrast - 09/04/2021 9:07 am CLINICAL HISTORY: Vomiting, abdominal pain, coughing up blood COMPARISON: Abdomen Pelvis W Contrast dated 04/29/2019 TECHNIQUE: Biphasic, helical CT imaging of the abdomen and pelvis was performed following 100 ml non -ionic IV contrast. No oral contrast administered. All CT scans are performed using dose optimization technique as appropriate and may include automated exposure control or mA/KV adjustment according to patient size. FINDINGS: Mid and lower lung rios were imaged and show no abnormalities. No endobronchial lesions seen in the imaged portions of the lung rios. No cardiomegaly or pericardial effusion. The liver, spleen, and pancreas show no suspicious findings. Liver shows mild diffuse fatty infiltrat ion. No portal vein abnormality. Gallbladder and biliary tree are also without suspicious finding. Symmetric renal function is seen with no hydronephrosis or suspicious renal mass. No pyelonephritis o r acute parenchymal process. No bladder abnormalities. No adrenal abnormalities. No gastric wall thickening, edema or mass lesions seen. Distal esophagus unremarkable as well. No lar ge or small bowel acute finding. Appendix is normal. No free air, free fluid or inflammatory strandin g. No hernia, mass or bulky lymphadenopathy. No suspicious bony findings. IMPRESSION: Contrast enhanced CT abdomen and pelvis showing no significant or suspicious finding. Patient has fatty infiltration of the liver.
--- NOTE | 2021-09-04 10:16 | EDPHYS ---
Physician Documentation [facility] Name: Gucci Santoyo Age: 25 yrs Sex: Male : 1995 Arrival Date: 09/04/2021 Time: 07:52 Bed 5 Private MD: KARIN Physician Henrry Perera HPI: 09/04 08:26 This 25 yrs old Male presents to ER via Ambulatory with complaints of Vomiting pm1 - Blood. 08:26 The patient presents to the emergency department with vomiting. Onset: The pm1 symptoms/episode began/occurred today, Daily vomiting in the morning for many years. Onset age 17. Reports he vomits grease in the morning. Vomiting has been worse the last few months. Patient reports vomiting blood occasionally, last time he vomited some blood loss January of last year. Was seen here in the ER for that event and discharged home. Patient has not followed up with GI. Patient reports last time he had a evaluation by GI was at onset of this vomiting at age 17, with endoscopy and colonoscopy. Today patient was sent home from work when he had vomiting with some blood. Possible causes: unknown. The symptoms are aggravated by nothing. The symptoms are alleviated by Patient reports that his nausea and vomiting recently with soda. Patient drinks his Cokes daily to suppress the vomiting. Associated signs and symptoms: Pertinent positives: Bright red blood with wiping with bowel movement. Negative for black tarry stool, Pertinent negatives: abdominal pain, diarrhea. Severity of symptoms: in the emergency department the symptoms have resolved Pain is currently a 0 / 10. The patient has experienced similar episodes in the past, multiple times. The patient has not recently seen a physician. Historical: - Allergies: 07:59 No Known Allergies; ww - Home Meds: 07:59 None [Active]; ww - PMHx: 07:59 GERD; ww - PSHx: 07:59 None; ww - Immunization history:: Adult Immunizations not up to date. - Social history:: Smoking status: Patient reports the use of cigarette tobacco products, Reported history of juuling and/or vaping. Patient/guardian denies using alcohol. ROS: 08:26 Constitutional: Negative for fever, chills, and weight loss, Cardiovascular: Negative pm1 for chest pain, palpitations, and edema, Respiratory: Negative for shortness of breath, cough, wheezing, and pleuritic chest pain. 08:26 Back: Negative for injury and pain, MS/Extremity: Negative for injury and deformity, Skin: Negative for injury, rash, and discoloration, Neuro: Negative for headache, weakness, numbness, tingling, and seizure. 08:26 Abdomen/GI: Positive for nausea and vomiting, hematemesis, Negative for abdominal pain, diarrhea, black/tarry stool. 08:26 All other systems are negative. Exam: 08:26 Constitutional: This is a well developed, well nourished patient who is awake, alert, pm1 and in no acute distress. Head/Face: Normocephalic, atraumatic. 08:26 Back: No spinal tenderness. No costovertebral tenderness. Full range of motion. Skin: Warm, dry with normal turgor. Normal color with no rashes, no lesions, and no evidence of cellulitis. MS/ Extremity: Pulses equal, no cyanosis. Neurovascular intact. Full, normal range of motion. 08:26 Eyes: Exam is negative for acute changes, Periorbital structures: no acute changes, Extraocular movements: no acute changes, Conjunctiva: no acute changes, no injection, Sclera: no acute changes, icterus, is not appreciated. 08:26 ENT: Exam is negative for acute changes, Posterior pharynx: no acute changes. 08:26 Cardiovascular: Exam negative for acute changes, Rate: normal, Rhythm: regular, Pulses: no pulse deficits are appreciated. 08:26 Respiratory: Exam negative for acute changes, respiratory distress, shortness of breath. 08:26 Abdomen/GI: Inspection: obese Palpation: abdomen is soft and non-tender, in all quadrants. 08:26 Neuro: Exam negative for acute changes, Orientation: is normal, Mentation: is normal, Motor: is normal, moves all fours. Vital Signs: 07:57 BP 146 / 98; Pulse 79; Resp 18; Temp 98.2; Pulse Ox 100% on R/A; Weight 90.72 kg; ww Height 5 ft. 6 in. (167.64 cm); Pain 0/10; 08:30 BP 123 / 88; Pulse 75; Pulse Ox 99% ; ll1 10:30 BP 115 / 65; Pulse 63; Resp 17; Pulse Ox 99% ; Pain 0/10; ll1 07:57 Body Mass Index 32.28 (90.72 kg, 167.64 cm) ww MDM: 08:03 Patient medically screened. pm1 08:26 Data reviewed: vital signs. Data interpreted: Pulse oximetry: on room air is 99 %. pm1 Interpretation: normal. 10:15 Counseling: I had a detailed discussion with the patient and/or guardian regarding: the pm1 historical points, exam findings, and any diagnostic results supporting the discharge/admit diagnosis, lab results, radiology results, the need for outpatient follow up, to return to the emergency department if symptoms worsen or persist or if there are any questions or concerns that arise at home. 09/04 08:20 Order name: CBC with Diff; Complete Time: 08:49 pm1 09/04 08:20 Order name: CMP; Complete Time: 08:49 pm1 09/04 08:20 Order name: Lipase; Complete Time: 08:49 pm1 09/04 08:20 Order name: CT Abd/Pelvis - IV Contrast Only; Complete Time: 09:27 pm1 09/04 08:24 Order name: PT-INR; Complete Time: 08:49 pm1 09/04 08:20 Order name: IV Saline Lock; Complete Time: 08:22 pm1 09/04 08:20 Order name: Labs collected and sent; Complete Time: 08:22 pm1 Administered Medications: 08:26 Drug: NS 0.9% 1000 ml Route: IV; Rate: 1 bolus; Site: right antecubital; ph 10:30 Follow up: Response: No adverse reaction; IV Status: Completed infusion; IV Intake: ll1 1000ml 08:26 Drug: Pepcid (famotidine) 20 mg Route: IVP; Site: right antecubital; ph 08:43 Follow up: Response: No adverse reaction ll1 08:26 Drug: Zofran (Ondansetron) 4 mg Route: IVP; Site: right antecubital; ph 08:43 Follow up: Response: No adverse reaction ll1 Disposition Summary: 09/04/21 10:16 Discharge Ordered Location: Home pm1 Problem: new pm1 Symptoms: have improved pm1 Condition: Stable pm1 Diagnosis - Nausea with vomiting, unspecified pm1 Followup: pm1 - With: Emergency Department - When: As needed - Reason: Worsening of condition Followup: pm1 - With: Private Physician - When: 2 - 3 days - Reason: Recheck today's complaints, Continuance of care, Re-evaluation by your physician Discharge Instructions: - Discharge Summary Sheet pm1 - Nausea and Vomiting, Adult pm1 Forms: - Medication Reconciliation Form pm1 - Thank You Letter pm1 - Antibiotic Education pm1 - Prescription Opioid Use pm1 - Work release form ll1 Prescriptions: - ondansetron 4 mg Oral tablet,disintegrating - place 1 tablet by TRANSLINGUAL route every 8 hours As needed; 12 tablet; pm1 Refills: 0, Product Selection Permitted - Pepcid 20 mg Oral Tablet - take 1 tablet by ORAL route every 12 hours for 10 days; 20 tablet; Refills: 0, pm1 Product Selection Permitted Signatures: Dispatcher [employer] EDMinda Whelan, RN RN Montez Jacob NP 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
--- NOTE | 2021-09-04 10:16 | ER ---
Nurse's Notes [facility] Name: Gucci Santoyo Age: 25 yrs Sex: Male : 1995 Arrival Date: 09/04/2021 Time: 07:52 Bed 5 Private MD: Diagnosis: Nausea with vomiting, unspecified Presentation: 09/04 07:57 Chief complaint: Patient states: Vomited blood today at [facility] and got sent home. ww Patient states that he "throws up grease often in the morning because his body separates the acids and gives him heart burn". Coronavirus screen: Client denies travel out of the [place] in the last 14 days. Ebola Screen: Patient denies travel to an Ebola-affected area in the 21 days before illness onset. Initial Sepsis Screen: Does the patient meet any 2 criteria? No. Patient's initial sepsis screen is negative. Does the patient have a suspected source of infection? No. Patient's initial sepsis screen is negative. Risk Assessment: Do you want to hurt yourself or someone else? Patient reports no desire to harm self or others. Onset of symptoms was September 04, 2021. 07:57 Method Of Arrival: Ambulatory ww 07:57 Acuity: JACQUI 3 ww Triage Assessment: 08:01 General: Appears in no apparent distress. Behavior is calm, cooperative. Pain: Denies ww pain. Neuro: Level of Consciousness is awake, alert, obeys commands, Oriented to person, place, time, situation, Gait is steady, Speech is normal. Cardiovascular: Capillary refill Patient's skin is warm and dry. Respiratory: Airway is patent Respiratory effort is even, unlabored, Respiratory pattern is regular, symmetrical. GI: Reports vomiting. Historical: - Allergies: 07:59 No Known Allergies; ww - Home Meds: 07:59 None [Active]; ww - PMHx: 07:59 GERD; ww - PSHx: 07:59 None; ww - Immunization history:: Adult Immunizations not up to date. - Social history:: Smoking status: Patient reports the use of cigarette tobacco products, Reported history of juuling and/or vaping. Patient/guardian denies using alcohol. Screenin:02 Abuse screen: Denies threats or abuse. Denies injuries from another. Nutritional ww screening: No deficits noted. Tuberculosis screening: No symptoms or risk factors identified. Fall Risk None identified. Assessment: 08:30 Reassessment: No changes from previously documented assessment. Patient and/or family ll1 updated on plan of care and expected duration. Pain level reassessed. Patient is alert, oriented x 3, equal unlabored respirations, skin warm/dry/pink. Pain: Denies pain. Neuro: No deficits noted. Cardiovascular: No deficits noted. GI: Reports nausea, vomiting. Vital Signs: 07:57 BP 146 / 98; Pulse 79; Resp 18; Temp 98.2; Pulse Ox 100% on R/A; Weight 90.72 kg; ww Height 5 ft. 6 in. (167.64 cm); Pain 0/10; 08:30 BP 123 / 88; Pulse 75; Pulse Ox 99% ; ll1 10:30 BP 115 / 65; Pulse 63; Resp 17; Pulse Ox 99% ; Pain 0/10; ll1 07:57 Body Mass Index 32.28 (90.72 kg, 167.64 cm) ED Course: 07:52 Patient arrived in ED. ds1 07:59 Triage completed. ww 08:01 Arm band placed on right wrist. ww 08:03 Montez Saravia NP is PHCP. pm1 08:03 Henrry Perera MD is Attending Physician. pm1 08:04 Patient placed in an exam room, on a stretcher. ll1 08:04 Patient has correct armband on for positive identification. Bed in low position. Call ll1 light in reach. Cardiac monitoring not applicable on this patient. 08:08 Alan Robles, RN is Primary Nurse. ll1 08:20 Inserted saline lock: 22 gauge in right antecubital area, using aseptic technique. ll1 Blood collected. 08:23 CBC with Diff Sent. 5 08:23 CMP Sent. 5 08:23 Lipase Sent. 5 08:23 Initial lab(s) drawn, by ED staff. [facility] 08:25 CBC with Diff Sent. 5 08:25 CMP Sent. 5 08:25 Lipase Sent. 5 08:26 PT-INR Sent. 5 09:09 CT Abd/Pelvis - IV Contrast Only In Process Unspecified. EDMS 10:34 No provider procedures requiring assistance completed. IV discontinued, intact, ll1 bleeding controlled, No redness/swelling at site. Pressure dressing applied. Administered Medications: 08:26 Drug: NS 0.9% 1000 ml Route: IV; Rate: 1 bolus; Site: right antecubital; ph 10:30 Follow up: Response: No adverse reaction; IV Status: Completed infusion; IV Intake: ll1 1000ml 08:26 Drug: Pepcid (famotidine) 20 mg Route: IVP; Site: right antecubital; ph 08:43 Follow up: Response: No adverse reaction ll1 08:26 Drug: Zofran (Ondansetron) 4 mg Route: IVP; Site: right antecubital; ph 08:43 Follow up: Response: No adverse reaction ll1 Medication: 08:04 VIS not applicable for this client. ll1 Intake: 10:30 IV: 1000ml; Total: 1000ml. ll1 Outcome: 10:16 Discharge ordered by MD. pm1 10:34 Patient left the ED. jl7 10:34 Discharged to home ambulatory. ll1 10:34 Condition: stable 10:34 Discharge instructions given to patient, Instructed on discharge instructions, follow up and referral plans. medication usage, Demonstrated understanding of instructions, follow-up care, medications, Prescriptions given X 2. Signatures: Dispatcher [employer] EDWI AlfonsoSandie murray ds1 Minda Moreira RN RN ph Montez Saravia NP IC ENGINEER pm1 Flor Griffith [facility] Alex Ray RN RN jl7 Alan Robles RN RN ll1 Ellie Klein RN RN ww Corrections: (The following items were deleted from the chart) 08:01 07:57 Chief complaint: Patient states: Vomited blood today at [facility] and got sent home. ww Patient states that he "throws up often in the morning because his body separates the acids and gives him heart burn". ww
[2021-09-04 10:38] VITALS: TEMP 98.2
[2021-09-04 10:40] VITALS: BP 123/88; O2SAT 99
== END 2021-09-04 10:34 | disposition home or self-care (01) ==
LOC: ER 07:50
DX: R11.2 Nausea with vomiting, unspecified (principal); K21.9 Gastro-esophageal reflux disease without esophagitis; Z72.0 Tobacco use
CPT/HCPCS: 36415; 74177; 80053; 83690; 85025; 85610; 96361; 96374; 96375; 99284; J2405; J3490; J7030; Q9967

== ENCOUNTER 2021-11-05 16:49 | Emergency (ER) | payer SELFPAY ==
--- NOTE | 2021-11-05 17:18 | EDPHYS ---
Physician Documentation [facility] Name: Gucci Santoyo Age: 26 yrs Sex: Male : 1995 Arrival Date: 11/05/2021 Time: 16:50 Bed Waiting Private MD: ED Physician Travis Meza HPI: 11/05 17:10 This 26 yrs old Male presents to ER via Unassigned with complaints of kb Vomiting, Nose Bleed. 18:15 The patient presents to the emergency department with nausea, vomiting. Onset: The kb symptoms/episode began/occurred 2 day(s) ago. Possible causes: chronic problem. The symptoms are aggravated by nothing. The symptoms are alleviated by nothing. Associated signs and symptoms: Pertinent positives: GI bleeding, nausea, vomiting. Severity of symptoms: At their worst the symptoms were mild moderate in the emergency department the symptoms have resolved. The patient has experienced similar episodes in the past, chronically. The patient has not recently seen a physician. Pt reports he has a chronic issue that causes him to have nosebleeds and vomit. States his vomit has blood in it most of the time. Reports he has had this since 16 years of age. He vomited at work today so his boss told him he had to be seen by a dr and get a note to return. States he is out of his pepcid which normally keeps symptoms under control. Historical: - Allergies: 17:18 No Known Allergies; vg1 - Home Meds: 17:18 Pepcid 20 mg Oral tab once daily [Active]; vg1 - PMHx: 17:18 GERD; vg1 - Immunization history:: Client reports having NOT received the Covid vaccine. - Social history:: Smoking status: Reported history of juuling and/or vaping. ROS: 18:15 Constitutional: Negative for fever, chills, and weight loss. kb 18:15 ENT: Positive for nose bleed. 18:15 Abdomen/GI: Positive for hematemesis. 18:15 All other systems are negative. Exam: 18:15 Constitutional: This is a well developed, well nourished patient who is awake, alert, kb and in no acute distress. Head/Face: Normocephalic, atraumatic. ENT: Moist Mucous membranes Cardiovascular: Regular rate and rhythm with a normal S1 and S2. No gallops, murmurs, or rubs. No pulse deficits. Respiratory: Respirations even and unlabored. No increased work of breathing. Talking in full sentences Abdomen/GI: Soft, non-tender. No distention Skin: Warm, dry with normal turgor. Normal color. MS/ Extremity: Pulses equal, no cyanosis. Neurovascular intact. Full, normal range of motion. Neuro: Awake and alert, GCS 15, oriented to person, place, time, and situation. Moves all extremities. Normal gait. Psych: Awake, alert, with orientation to person, place and time. Behavior, mood, and affect are within normal limits. Vital Signs: 17:16 BP 164 / 90; Pulse 85; Resp 18; Temp 99.1; Pulse Ox 100% ; Weight 95.25 kg; Height 5 vg1 ft. 6 in. (167.64 cm); 17:16 Body Mass Index 33.89 (95.25 kg, 167.64 cm) vg1 MDM: 17:09 Patient medically screened. kb 18:12 Data reviewed: vital signs, nurses notes. Data interpreted: Pulse oximetry: on room air kb is 100 %. Interpretation: normal. 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 18:12 ED course: Pt reports this is a chronic problem that he recently had blood work and CT kb for and prefers not to have them done again. States he is going to see a GI and have another endoscopy and colonoscopy when his insurance kicks in. Came today for a note to return to work only because his boss won't let him come back until then. . Administered Medications: No medications were administered Disposition: 22:11 Co-signature as Attending Physician, Travis BARBA was immediately available on-site ms3 in the Emergency Department for consultation in the care of the patient. . Disposition Summary: 11/05/21 17:17 Discharge Ordered Location: Home kb Condition: Stable kb Diagnosis - Epistaxis kb - Vomiting - chronic kb Followup: kb - With: Emergency Department - When: As needed - Reason: Worsening of condition Followup: kb - With: Private Physician - When: 2 - 3 days - Reason: Recheck today's complaints, Continuance of care, Re-evaluation by your physician Discharge Instructions: - Discharge Summary Sheet kb - Hematemesis kb - Nosebleed, Adult, [id number] kb Forms: - Work release form kb - Medication Reconciliation Form kb - Thank You Letter kb - Antibiotic Education kb - Prescription Opioid Use kb Prescriptions: - Pepcid 20 mg Oral Tablet - take 1 tablet by ORAL route 2 times per day; 60 tablet; Refills: 0, Product kb Selection Permitted Signatures: Alejandra Larsen, ROSANNEC Lolly Narvaez, RN RN vg1 Travis Meza DO DO ms3
--- NOTE | 2021-11-05 17:59 | ER ---
Nurse's Notes [facility] Name: Gucci Santoyo Age: 26 yrs Sex: Male : 1995 Arrival Date: 11/05/2021 Time: 16:50 Bed Waiting Private MD: Diagnosis: Epistaxis;Vomiting-chronic Presentation: 11/05 17:16 Chief complaint: Patient states: vomiting x 2 days; hx of chronic vomiting and takes vg1 pepcid 20 mg PO daily. Stated needs a note for work since work sent pt to ED. Coronavirus screen: Vaccine status: Patient reports being unvaccinated. Client denies travel out of the [place] in the last 14 days. Ebola Screen: Patient denies exposure to infectious person. Patient denies travel to an Ebola-affected area in the 21 days before illness onset. Initial Sepsis Screen: Does the patient meet any 2 criteria? No. Patient's initial sepsis screen is negative. Does the patient have a suspected source of infection? No. Patient's initial sepsis screen is negative. Risk Assessment: Do you want to hurt yourself or someone else? Patient reports no desire to harm self or others. Onset of symptoms was November 03, 2021. 17:16 Method Of Arrival: Ambulatory vg1 17:16 Acuity: JACQUI 4 vg1 Triage Assessment: 17:18 General: Appears in no apparent distress. Pain: Denies pain. GI: Reports vomiting. vg1 Historical: - Allergies: 17:18 No Known Allergies; vg1 - Home Meds: 17:18 Pepcid 20 mg Oral tab once daily [Active]; vg1 - PMHx: 17:18 GERD; vg1 - Immunization history:: Client reports having NOT received the Covid vaccine. - Social history:: Smoking status: Reported history of juuling and/or vaping. Vital Signs: 17:16 BP 164 / 90; Pulse 85; Resp 18; Temp 99.1; Pulse Ox 100% ; Weight 95.25 kg; Height 5 vg1 ft. 6 in. (167.64 cm); 17:16 Body Mass Index 33.89 (95.25 kg, 167.64 cm) vg1 ED Course: 16:50 Patient arrived in ED. as 16:51 Travis Meza DO is Attending Physician. ms3 16:53 Alejandra Larsen FNP-C is [facility]. kb 17:18 Triage completed. vg1 17:18 Arm band placed on. vg1 Administered Medications: No medications were administered Outcome: 17:17 Discharge ordered by MD. kb 17:58 Patient left the ED. vg1 Signatures: Alejandra Larsen FNP-C FNP-Aurelia Crabtree Victoria, RN RN vg1 Travis Meza DO DO ms3
[2021-11-05 18:26] VITALS: BP 164/90; TEMP 99.1; O2SAT 100
== END 2021-11-05 17:58 | disposition home or self-care (01) ==
LOC: ER 16:49
DX: R04.0 Epistaxis (principal); R11.2 Nausea with vomiting, unspecified; K21.9 Gastro-esophageal reflux disease without esophagitis
CPT/HCPCS: 99281

== ENCOUNTER 2022-06-25 10:30 | Emergency (ER) | payer SELFPAY ==
[2022-06-25] MEDS ORDERED: dexAMETHasone 10 MG/ML VIAL ONE (11:51)
[2022-06-25] MEDS ORDERED: ONDANSETRON 4 MG (ODT) TAB ONE (11:51)
[2022-06-25 12:01] VITALS: BP 146/80; TEMP 98.1; O2SAT 99
--- NOTE | 2022-07-12 14:20 | EDPHYS ---
Physician Documentation [facility] Name: Gucci Santoyo Age: 26 yrs Sex: Male : 1995 Arrival Date: 06/25/2022 Time: 10:32 Bed DIS4 Private MD: ED Physician Travis Meza HPI: 06/25 11:16 This 26 yrs old Male presents to ER via Ambulatory with complaints of Rash, ms3 Vomiting. 11:16 26-year-old male with past medical history of GERD presents for vomiting that is been ms3 ongoing since he was a child. Patient states he has had the vomiting intermittent for the last week. Patient also notes he has poison love of bilateral arms and legs. Patient states he has had itching that he rates a 5/10. Patient states he took Benadryl last night with some relief.. Historical: - Allergies: 10:59 No Known Allergies; ld1 - PMHx: 10:59 GERD; ld1 - PSHx: 10:59 None; ld1 - Immunization history:: Adult Immunizations up to date. - Social history:: Smoking status: Patient denies any tobacco usage or history of. Patient/guardian denies using alcohol. ROS: 11:16 Constitutional: Negative for fever, and chills. ENT: Negative for injury, pain, and ms3 discharge, Neck: Negative for injury, pain, and swelling, Cardiovascular: Negative for chest pain, and palpitations. Respiratory: Negative for shortness of breath, cough, wheezing, and pleuritic chest pain. 11:16 MS/Extremity: Negative for injury and deformity, Neuro: Negative for headache, weakness, numbness, tingling. 11:16 Abdomen/GI: Positive for nausea, vomiting. 11:16 Skin: Positive for rash. 11:16 All other systems are negative. Exam: 11:16 Constitutional: This is a well developed, well nourished patient who is awake, alert, ms3 and in no acute distress. Head/Face: Normocephalic, atraumatic. Neck: Trachea midline, no cervical lymphadenopathy. Supple, full range of motion without nuchal rigidity, or vertebral point tenderness. No Meningismus. Chest/axilla: Normal chest wall appearance and motion. Nontender with no deformity. Cardiovascular: Regular rate and rhythm with a normal S1 and S2. No gallops, murmurs, or rubs. Normal PMI, no JVD. No pulse deficits. Respiratory: Lungs have equal breath sounds bilaterally, clear to auscultation and percussion. No rales, rhonchi or wheezes noted. No increased work of breathing, no retractions or nasal flaring. Abdomen/GI: Soft, non-tender, with normal bowel sounds. No distension or tympany. No guarding or rebound. No evidence of tenderness throughout. 11:16 Skin: contact dermatitis, on the Bilateral forearms and bilateral lower legs. Vital Signs: 10:57 BP 146 / 80; Pulse 85; Resp 18; Temp 98.1(TE); Pulse Ox 99% on R/A; Weight 86.18 kg; ld1 Height 5 ft. 6 in. ; Pain 0/10; 10:57 Body Mass Index 30.67 (86.18 kg, 167.64 cm) ld1 10:57 Pain Scale: Adult ld1 MDM: 10:42 Patient medically screened. [facility] 11:19 Differential diagnosis: Contact dermatitis vs vomiting vs GERD. ms3 11:21 Data reviewed: vital signs, nurses notes, and as a result, I will discharge patient. I ms3 considered the following discharge prescriptions or medication management in the emergency department Medications were administered in the Emergency Department. See MAR. Care significantly affected by the following Social Determinants of Health: Poor access to healthcare and/or lack of insurance. Counseling: I had a detailed discussion with the patient and/or guardian regarding: the historical points, exam findings, and any diagnostic results supporting the discharge/admit diagnosis, the need for outpatient follow up, to return to the emergency department if symptoms worsen or persist or if there are any questions or concerns that arise at home. ED course: Discussed physical exam findings with patient. Patient to follow-up with Dr. Hernandez in 2 to 3 days. Patient understands and agrees with plan. All questions were answered. Return precautions discussed include worsening symptoms, or any other concerns.. Administered Medications: 11:50 Drug: Dexamethasone IM 10 mg Route: IM; Site: left deltoid; iw 11:51 Drug: Ondansetron PO 4 mg Route: PO; iw Disposition Summary: 06/25/22 11:20 Discharge Ordered Location: Home ms3 Condition: Stable ms3 Diagnosis - Vomiting ms3 - Allergic contact dermatitis due to plants, except food ms3 Followup: ms3 - With: Ismael Hernandez MD - When: 2 - 3 days - Reason: Recheck today's complaints Discharge Instructions: - Discharge Summary Sheet ms3 - Poison Love Dermatitis ms3 - Vomiting, Adult ms3 Forms: - Work release form iw - Medication Reconciliation Form ms3 - Thank You Letter ms3 - Antibiotic Education ms3 - Prescription Opioid Use ms3 Prescriptions: - Zofran 4 mg Oral Tablet - take 1 tablet by ORAL route every 12 hours As needed; 20 tablet; Refills: 0, ms3 Product Selection Permitted - Prednisone 20 mg Oral Tablet - take 2 tablets by ORAL route once daily for 5 days; 10 tablet; Refills: 0, ms3 Product Selection Permitted - Pepcid 20 mg Oral Tablet - take 1 tablet by ORAL route once daily; 20 tablet; Refills: 0, Product ms3 Selection Permitted Signatures: Henrry Perera MD MD cha Williams, Irene, RN RN iw Travis Meza DO DO ms3 Yahaira Paredes RN RN ld1
--- NOTE | 2022-07-12 14:20 | ER ---
Nurse's Notes [facility] Name: Gucci Santoyo Age: 26 yrs Sex: Male : 1995 Arrival Date: 06/25/2022 Time: 10:32 Bed DIS4 Private MD: Diagnosis: Vomiting;Allergic contact dermatitis due to plants, except food Presentation: 06/25 10:57 Chief complaint: Patient states: Nausea/vomiting X 1 week, vomiting contained blood. ld1 Poison neda to bilateral legs. Coronavirus screen: At this time, the client does not indicate any symptoms associated with coronavirus-19. Ebola Screen: No symptoms or risks identified at this time. Initial Sepsis Screen: Does the patient meet any 2 criteria? No. Patient's initial sepsis screen is negative. Does the patient have a suspected source of infection? No. Patient's initial sepsis screen is negative. Risk Assessment: Do you want to hurt yourself or someone else? Patient reports no desire to harm self or others. Onset of symptoms was June 25, 2022. 10:57 Method Of Arrival: Ambulatory ld1 10:57 Acuity: JACQUI 3 ld1 Triage Assessment: 10:59 General: Appears in no apparent distress. comfortable, Behavior is calm, cooperative, ld1 appropriate for age. Pain: Denies pain. EENT: No signs and/or symptoms were reported regarding the EENT system. Neuro: Level of Consciousness is awake, alert, obeys commands, Oriented to person, place, time, situation. Cardiovascular: Capillary refill < 3 seconds Patient's skin is warm and dry. Respiratory: Airway is patent Respiratory effort is even, unlabored. GI: Abdomen is flat, non-distended, Reports nausea, vomiting. : No signs and/or symptoms were reported regarding the genitourinary system. Derm: Rash noted that is itchy, red. Musculoskeletal: No signs and/or symptoms reported regarding the musculoskeletal system. Historical: - Allergies: 10:59 No Known Allergies; ld1 - PMHx: 10:59 GERD; ld1 - PSHx: 10:59 None; ld1 - Immunization history:: Adult Immunizations up to date. - Social history:: Smoking status: Patient denies any tobacco usage or history of. Patient/guardian denies using alcohol. Vital Signs: 10:57 BP 146 / 80; Pulse 85; Resp 18; Temp 98.1(TE); Pulse Ox 99% on R/A; Weight 86.18 kg; ld1 Height 5 ft. 6 in. ; Pain 0/10; 10:57 Body Mass Index 30.67 (86.18 kg, 167.64 cm) ld1 10:57 Pain Scale: Adult ld1 ED Course: 10:32 Patient arrived in ED. rg4 10:42 Henrry Perera MD is Attending Physician. [facility] 10:59 Triage completed. ld1 10:59 Arm band placed on right wrist. ld1 11:04 Attending Physician role handed off by Henrry Perera MD ms3 11:04 Travis Meza DO is Attending Physician. ms3 11:19 Ismael Hernandez MD is Referral Physician. ms3 11:50 Melony Whaley, RN is Primary Nurse. iw Administered Medications: 11:50 Drug: Dexamethasone IM 10 mg Route: IM; Site: left deltoid; iw 11:51 Drug: Ondansetron PO 4 mg Route: PO; iw Outcome: 11:20 Discharge ordered by . ms3 11:56 Patient left the ED. iw Signatures: Henrry Perera MD MD cha Williams, Irene, RN RN iw Velia Fuller rg4 Travis Meza DO DO ms3 Yahaira Paredes, RN RN ld1 Corrections: (The following items were deleted from the chart) 10:59 10:57 Chief complaint: Patient states: Nausea/vomiting X 1 week, vomiting contained ld1 blood. ld1
== END 2022-06-25 11:56 | disposition home or self-care (01) ==
LOC: ER 10:30
DX: R11.10 Vomiting, unspecified (principal); L23.7 Allergic contact dermatitis due to plants, except food
CPT/HCPCS: 96372; 99282; J1100; Q0162